=== PATIENT | male | born 1950 | race Caucasian/White ===

== ENCOUNTER 2020-12-05 15:05 | Inpatient (IN) | payer MEDICARE ==
[2020-12-05 15:53] LABS: #Eosinphils 0.5 thou/uL (0.0-0.7); #Lymphocytes 1.3 thou/uL (1.20-3.40); #Monocytes 1.2 thou/uL (0.11-0.59); #Neutrophils 5.8 thou/uL (1.40-6.50); %Basophils 0.2 % (0.0-1.0); %Eosinophils 5.9 % (0.0-10.0); %Lymphocytes 14.4 % (21.0-51.0); %Monocytes 13.4 % (0.0-10.0); Hemoglobin 11.6 g/dL (14.0-18.0); Mean Corpuscular Hemoglobin 32.2 pg (27.0-31.0); Mean Corpuscular Volume 94.7 fL (78.0-98.0); Mean Platelet Volume 7.3 fL (7.4-10.4); Platelet Count 347 thou/uL (130-400); RBC Distribution Width 11.7 % (11.5-14.5); White Blood Cell (WBC) Count 8.8 thou/uL (4.8-10.8)
[2020-12-05 16:16] LABS: ALT (SGPT) 23 U/L (8-55); AST (SGOT) 20 U/L (5-34); Albumin 3.5 g/dL (3.4-4.8); Alkaline Phosphatase 74 U/L (40-110); Anion Gap 15 mmol/L (10-20); BUN (Urea Nitrogen) 56 mg/dL (8.4-25.7); Bilirubin, Total 0.4 mg/dL (0.2-1.2); Calc. Creatinine Clearance 0 mL/min (70-130); Carbon Dioxide 22 mmol/L (23-31); Chloride 103 mmol/L (98-107); Globulin 2.9 g/dL (2.4-3.5); Glucose 120 mg/dL (80-115); Lipase 39 U/L (8-78); Potassium 3.3 mmol/L (3.5-5.1); Protein, Total 6.4 g/dL (5.8-8.1); Sodium 137 mmol/L (136-145)
[2020-12-05 18:31] LABS: INR-International Normal Ratio 1.1; PTT 29.3 sec (22.9-36.1); Prothrombin Time 13.9 sec (12.0-14.7)
[2020-12-05 18:41] LABS: CK (CPK) 38 U/L (30-200); Magnesium 2.6 mg/dL (1.6-2.6)
[2020-12-05] MEDS ORDERED: Midazolam HCl 2 mg/2 ml Vial ONE (20:30)
[2020-12-05] MEDS ORDERED: Aspirin 300 MG Suppository ONE (20:30)
[2020-12-06] MEDS: Sodium Chloride 0.9% 1,000 ML IV SCH ×2 (01:40→05:32)
[2020-12-06] MEDS ORDERED: Ondansetron PF 4 MG/2 ML Vial IVP PRN (04:29)
[2020-12-06] MEDS ORDERED: Potassium Chloride 10 MEQ in Premix Bag 1 BAG IVPB SCH ×2 (05:00→06:00)
[2020-12-06] MEDS: Azithromycin 500 MG in Sodium Chloride 0.9% 250 ML 250 ML IVPB SCH (05:03)
[2020-12-06 05:21] LABS: Hemoglobin 11.6 g/dL (14.0-18.0); Mean Corpuscular HGB CONC 33.3 g/dL (32.0-36.0); Mean Corpuscular Hemoglobin 31.6 pg (27.0-31.0); Mean Corpuscular Volume 94.8 fL (78.0-98.0); Mean Platelet Volume 7.2 fL (7.4-10.4); Platelet Count 356 thou/uL (130-400); RBC Distribution Width 11.6 % (11.5-14.5); Red Blood Cell (RBC) Count 3.69 mill/uL (4.70-6.10); White Blood Cell (WBC) Count 7.5 thou/uL (4.8-10.8)
[2020-12-06 05:35] LABS: Anion Gap 18 mmol/L (10-20); BUN (Urea Nitrogen) 41 mg/dL (8.4-25.7); Calc. Creatinine Clearance 55 mL/min (70-130); Carbon Dioxide 22 mmol/L (23-31); Chloride 111 mmol/L (98-107); Glucose 104 mg/dL (80-115); Potassium 3.4 mmol/L (3.5-5.1); Sodium 148 mmol/L (136-145)
[2020-12-06] MEDS ORDERED: cefTRIAXone\\ROCEPHIN 1 GM in Sodium Chloride 0.9% 100 ML IVPB SCH (06:00)
[2020-12-06] MEDS: cefTRIAXone\\ROCEPHIN 1 GM in Sodium Chloride 0.9% 100 ML IVPB SCH (06:34)
[2020-12-06 06:39] LABS: Band 19 % (5-11); Eosinophils 4 % (0-10); Lymphocytes 10 % (21-51); MDiff Complete? YES; Metamyelocyte 1 % (0-0); Monocytes 15 % (0-10); Neutrophil 48 % (42-75); Platelet Morphology Comment Appears Adequate; RBC Morphology Normal; Reactive Lymphocytes 3 % (0-10)
[2020-12-06 07:25] LABS: Bilirubin Negative (Negative); Blood, Urine Negative (Negative); Clarity Clear (Clear); Glucose, Urine (Dipstick) Normal (Negative); Ketone, Urine 10 mg/dL (Negative); Leukocyte Negative Leu/uL (Negative); Nitrite Negative (Negative); Protein, Urine (Dipstick) Negative (Neg-Trace); Urobilinogen Normal mg/dL (Less than 2)
[2020-12-06] MEDS ORDERED: Potassium Chloride 20 MEQ TAB PO SCH (08:00)
[2020-12-06] MEDS ORDERED: chlorproMAZINE HCl 25 MG in Sodium Chloride 0.9% 50 ML IVPB SCH (13:00)
[2020-12-06] MEDS ORDERED: Potassium Chloride 40 MEQ in Sodium Chloride 0.9% 250 ML 250 ML IVPB SCH ×2 (14:00→19:45)
[2020-12-06 17:17] LABS: SARS-CoV-2 PCR by NAA Not Detected (NotDetected)
[2020-12-06 23:07] LABS: Legionella Urinary Ag Negative (Negative)
[2020-12-07] MEDS: Azithromycin 500 MG in Sodium Chloride 0.9% 250 ML 250 ML IVPB SCH ×2 (04:15→09:06)
[2020-12-07] MEDS: cefTRIAXone\\ROCEPHIN 1 GM in Sodium Chloride 0.9% 100 ML IVPB SCH ×2 (06:15→09:06)
[2020-12-07] MEDS ORDERED: Sodium Chloride 0.9% 1,000 ML IV SCH (07:15)
[2020-12-07 09:10] LABS: Cardiac Risk 3.2 (Less than 4.5)
[2020-12-07] MEDS ORDERED: Sodium Chloride 0.9% 500 ML IV SCH (09:45)
[2020-12-07 11:31] LABS: Anion Gap 22 mmol/L (10-20); BUN (Urea Nitrogen) 38 mg/dL (8.4-25.7); Calc. Creatinine Clearance 37 mL/min (70-130); Calcium 9.2 mg/dL (7.8-10.44); Carbon Dioxide 22 mmol/L (23-31); Chloride 119 mmol/L (98-107); Glucose 110 mg/dL (80-115); Potassium 3.2 mmol/L (3.5-5.1); Sodium 160 mmol/L (136-145)
[2020-12-07] MEDS ORDERED: Potassium Chloride 20 MEQ TAB PO SCH (15:15)
[2020-12-07 15:27] LABS: Hemoglobin 14.7 g/dL (14.0-18.0); Mean Corpuscular HGB CONC 32.3 g/dL (32.0-36.0); Mean Corpuscular Hemoglobin 30.7 pg (27.0-31.0); Mean Corpuscular Volume 95.1 fL (78.0-98.0); Mean Platelet Volume 7.1 fL (7.4-10.4); Platelet Count 600 thou/uL (130-400); RBC Distribution Width 12.1 % (11.5-14.5); White Blood Cell (WBC) Count 28.5 thou/uL (4.8-10.8)
[2020-12-07] MEDS ORDERED: Pantoprazole 40 MG VIAL IVP SCH (15:30)
[2020-12-07] MEDS ORDERED: Enoxaparin Sodium 40 MG/0.4 ML SYRINGE SC SCH (15:30)
[2020-12-07] MEDS ORDERED: MD-Gastroview 120 ML BOT ONE (15:32)
[2020-12-07 15:43] LABS: Anion Gap 28 mmol/L (10-20); BUN (Urea Nitrogen) 46 mg/dL (8.4-25.7); Calc. Creatinine Clearance 28 mL/min (70-130); Calcium 10.1 mg/dL (7.8-10.44); Carbon Dioxide 20 mmol/L (23-31); Chloride 126 mmol/L (98-107); Glucose 153 mg/dL (80-115); Potassium 3.3 mmol/L (3.5-5.1); Sodium 171 mmol/L (136-145)
[2020-12-07 16:06] LABS: Hemoglobin 13.1 g/dL (14.0-18.0); Mean Corpuscular HGB CONC 32.8 g/dL (32.0-36.0); Mean Corpuscular Hemoglobin 31.1 pg (27.0-31.0); Mean Corpuscular Volume 94.9 fL (78.0-98.0); Mean Platelet Volume 7.1 fL (7.4-10.4); Platelet Count 526 thou/uL (130-400); Red Blood Cell (RBC) Count 4.22 mill/uL (4.70-6.10); White Blood Cell (WBC) Count 24.7 thou/uL (4.8-10.8)
[2020-12-07 16:06] LABS: Band 25 % (5-11); Eosinophils 3 % (0-10); Lymphocytes 8 % (21-51); MDiff Complete? YES; Monocytes 12 % (0-10); Myelocyte 4 % (0-0); Neutrophil 48 % (42-75); Nucleated RBC 1 % (0); Platelet Morphology Comment Appears Increased; RBC Morphology Normal
[2020-12-07 16:28] LABS: Band 21 % (5-11); Lymphocytes 15 % (21-51); MDiff Complete? YES; Metamyelocyte 1 % (0-0); Monocytes 7 % (0-10); Myelocyte 2 % (0-0); Neutrophil 53 % (42-75); Nucleated RBC 1 % (0); Platelet Morphology Comment Appears Increased; Polychromasia SLIGHT = 2-3 cells (100X) (0-2/hpf); Promyelocytes 1 % (0-0)
[2020-12-07 16:49] LABS: Anion Gap 23 mmol/L (10-20); BUN (Urea Nitrogen) 45 mg/dL (8.4-25.7); Calc. Creatinine Clearance 31 mL/min (70-130); Carbon Dioxide 23 mmol/L (23-31); Chloride 126 mmol/L (98-107); Glucose 138 mg/dL (80-115); Potassium 2.9 mmol/L (3.5-5.1); Sodium 169 mmol/L (136-145)
[2020-12-07] MEDS: Dextrose 5 %-0.45 % NaCl 1,000 ML IV SCH ×2 (17:11→23:22)
[2020-12-07 17:53] LABS: Actual Bicarbonate (HCO3a) 20.2 mEq/L (22-28); Base Excess (BEa) 2.3 mEq/L (-2.0 to +3.0); Calcium, Ionized (arterial) 1.18 mmol/L (1.12-1.30); Carboxyhemoglobin (COHb) 0.2 gm% (0.0-3.0); Hemoglobin (Hb) 13.2 g/dL (14.0-18.0); Potassium - ABG Lab 2.68 mmol/L (3.70-5.30)
[2020-12-07 18:01] LABS: ALV-art Gradient 68.355 mmHg (0-20); CO2 Tension 17.5 mmHg (35.0-45.0); O2 Tension (PaO2), arterial 59.5 mmHg (> 80.0); Puncture Site LBA; pH, Arterial 7.68 (7.35-7.45)
[2020-12-07] MEDS: Potassium Chloride 20 MEQ in Premix Bag 1 BAG IVPB SCH ×2 (18:19→19:18)
[2020-12-07] MEDS: Potassium Chloride 20 MEQ TAB PO SCH ×3 (19:18→21:35)
[2020-12-07 20:15] LABS: Anion Gap 20 mmol/L (10-20); BUN (Urea Nitrogen) 48 mg/dL (8.4-25.7); Calc. Creatinine Clearance 29 mL/min (70-130); Carbon Dioxide 24 mmol/L (23-31); Chloride 130 mmol/L (98-107); Glucose 167 mg/dL (80-115); Potassium 3.2 mmol/L (3.5-5.1); Sodium 171 mmol/L (136-145)
[2020-12-08 00:20] LABS: Anion Gap 16 mmol/L (10-20); BUN (Urea Nitrogen) 47 mg/dL (8.4-25.7); Calc. Creatinine Clearance 31 mL/min (70-130); Calcium 8.9 mg/dL (7.8-10.44); Carbon Dioxide 27 mmol/L (23-31); Chloride 128 mmol/L (98-107); Glucose 179 mg/dL (80-115); Sodium 168 mmol/L (136-145)
[2020-12-08 00:45] LABS: Actual Bicarbonate (HCO3a) 23.5 mEq/L (22-28); Calcium, Ionized (arterial) 1.17 mmol/L (1.12-1.30); Hemoglobin (Hb) 13.9 g/dL (14.0-18.0); Potassium - ABG Lab 2.53 mmol/L (3.70-5.30)
[2020-12-08 00:46] LABS: pH, Arterial 7.63 (7.35-7.45)
[2020-12-08 00:47] LABS: O2 Tension (PaO2), arterial 52.1 mmHg (> 80.0); Puncture Site RBA
[2020-12-08] MEDS: Azithromycin 500 MG in Sodium Chloride 0.9% 250 ML 250 ML IVPB SCH (04:43)
[2020-12-08 05:11] LABS: Anion Gap 12 mmol/L (10-20); BUN (Urea Nitrogen) 46 mg/dL (8.4-25.7); Calc. Creatinine Clearance 30 mL/min (70-130); Calcium 8.9 mg/dL (7.8-10.44); Carbon Dioxide 30 mmol/L (23-31); Chloride 126 mmol/L (98-107); Glucose 177 mg/dL (80-115); Sodium 165 mmol/L (136-145)
[2020-12-08] MEDS: cefTRIAXone\\ROCEPHIN 1 GM in Sodium Chloride 0.9% 100 ML IVPB SCH (06:10)
[2020-12-08] MEDS ORDERED: Dextrose 5 %-0.45 % NaCl 1,000 ML IV SCH (07:42)
[2020-12-08] MEDS ORDERED: Potassium Chloride 20 MEQ TAB PO SCH (08:00)
[2020-12-08 09:08] LABS: Anion Gap 16 mmol/L (10-20); BUN (Urea Nitrogen) 44 mg/dL (8.4-25.7); Calc. Creatinine Clearance 31 mL/min (70-130); Carbon Dioxide 29 mmol/L (23-31); Chloride 127 mmol/L (98-107); Glucose 141 mg/dL (80-115); Potassium 3.1 mmol/L (3.5-5.1); Sodium 169 mmol/L (136-145)
[2020-12-08] MEDS ORDERED: Dextrose 5% in Water 1,000 ML IV SCH (10:45)
[2020-12-08] MEDS: Potassium Chloride 20 MEQ in Premix Bag 1 BAG IVPB SCH ×2 (10:54→10:59)
[2020-12-08] MEDS: Pantoprazole 40 MG VIAL IVP SCH (10:57)
[2020-12-08] MEDS: Enoxaparin Sodium 40 MG/0.4 ML SYRINGE SC SCH (10:57)
[2020-12-08 11:44] LABS: Band 11 % (5-11); Eosinophils 6 % (0-10); Hemoglobin 13.6 g/dL (14.0-18.0); Lymphocytes 14 % (21-51); MDiff Complete? YES; Mean Corpuscular HGB CONC 32.2 g/dL (32.0-36.0); Mean Corpuscular Hemoglobin 30.5 pg (27.0-31.0); Mean Corpuscular Volume 94.9 fL (78.0-98.0); Metamyelocyte 1 % (0-0); Monocytes 6 % (0-10); Myelocyte 1 % (0-0); Neutrophil 60 % (42-75); Platelet Count 522 thou/uL (130-400); Platelet Morphology Comment Appears Increased; RBC Distribution Width 12.1 % (11.5-14.5); Red Blood Cell (RBC) Count 4.45 mill/uL (4.70-6.10); White Blood Cell (WBC) Count 33.7 thou/uL (4.8-10.8)
[2020-12-08 12:53] LABS: Albumin 3.4 g/dL (3.4-4.8)
[2020-12-08 12:54] LABS: Potassium 4.2 mmol/L (3.5-5.1)
[2020-12-08 12:57] LABS: Anion Gap 28 mmol/L (10-20); Carbon Dioxide 18 mmol/L (23-31)
[2020-12-08 12:58] LABS: Chloride 129 mmol/L (98-107); Glucose 238 mg/dL (80-115); Sodium 171 mmol/L (136-145)
[2020-12-08 12:59] LABS: BUN (Urea Nitrogen) 44 mg/dL (8.4-25.7); BUN/Creatinine Ratio 18.88; Calc. Creatinine Clearance 30 mL/min (70-130)
[2020-12-08 13:00] LABS: CK (CPK) 176 U/L (30-200)
[2020-12-08 13:23] LABS: Phosphorus 1.9 mg/dL (2.3-4.7)
[2020-12-08] MEDS ORDERED: Potassium Phosphate 30 MMOL in Sodium Chloride 0.9% 500 ML IVPB SCH (14:00)
[2020-12-08 14:28] LABS: Magnesium 2.9 mg/dL (1.6-2.6)
[2020-12-08] MEDS: Erythromycin 250 MG in Sodium Chloride 0.9% 250 ML 250 ML IVPB SCH ×2 (15:03→22:38)
[2020-12-08 16:50] LABS: Anion Gap 14 mmol/L (10-20); BUN (Urea Nitrogen) 35 mg/dL (8.4-25.7); BUN/Creatinine Ratio 18.62; Calc. Creatinine Clearance 37 mL/min (70-130); Calcium 8.3 mg/dL (7.8-10.44); Carbon Dioxide 25 mmol/L (23-31); Chloride 128 mmol/L (98-107); Glucose 148 mg/dL (80-115); Phosphorus 2.8 mg/dL (2.3-4.7); Sodium 164 mmol/L (136-145)
[2020-12-08] MEDS ORDERED: Lorazepam 2 MG/ML VIAL SLOW IVP PRN (19:21)
[2020-12-08 19:49] LABS: Bilirubin Negative (Negative); Blood, Urine 1+ (Negative); Clarity Clear (Clear); Glucose, Urine (Dipstick) Normal (Negative); Ketone, Urine Negative (Negative); Leukocyte 25 Leu/uL (Negative); Nitrite Negative (Negative); Protein, Urine (Dipstick) Negative (Neg-Trace); RBC/HPF 0-3 HPF (0-3); Specific Gravity, Urine 1.008 (1.002-1.036); Urobilinogen Normal mg/dL (Less than 2); WBC/HPF 0-3 HPF (0-3)
[2020-12-08 19:55] LABS: Bacteria/HPF Rare-Few HPF (None Seen); Squamous Epithelial 0-3 HPF (0-3)
[2020-12-08 19:56] LABS: Urine Culture Reflex Yes Yes
[2020-12-08 20:02] LABS: Creatinine, Urine 34.33 mg/dL (63-166); Protein, Urine Random Quant 13 mg/dL (1-14); Sodium, Urine Less than 20 mmol/L (Not Available); Urea Nitrogen, Random Urine 379 mg/dl
[2020-12-08 20:32] LABS: Anion Gap 17 mmol/L (10-20); BUN (Urea Nitrogen) 30 mg/dL (8.4-25.7); BUN/Creatinine Ratio 17.14; Calc. Creatinine Clearance 40 mL/min (70-130); Calcium 8.2 mg/dL (7.8-10.44); Carbon Dioxide 24 mmol/L (23-31); Chloride 128 mmol/L (98-107); Glucose 130 mg/dL (80-115); Phosphorus 3.1 mg/dL (2.3-4.7); Potassium 3.3 mmol/L (3.5-5.1); Sodium 166 mmol/L (136-145)
[2020-12-08] MEDS: Dextrose 5 %-0.45 % NaCl 1,000 ML IV SCH (21:45)
[2020-12-08] MEDS: Dextrose 5% in Water 1,000 ML IV SCH (22:24)
[2020-12-08] MEDS: carBAMazepine 200 MG TAB PO SCH (22:37)
[2020-12-09] MEDS: Dextrose 5% in Water 1,000 ML IV SCH ×4 (03:42→21:00)
[2020-12-09 05:23] LABS: #Eosinphils 0.6 thou/uL (0.0-0.7); #Lymphocytes 2.7 thou/uL (1.20-3.40); #Monocytes 0.6 thou/uL (0.11-0.59); #Neutrophils 14.3 thou/uL (1.40-6.50); %Basophils 0.2 % (0.0-1.0); %Eosinophils 3.1 % (0.0-10.0); %Lymphocytes 14.8 % (21.0-51.0); %Monocytes 3.1 % (0.0-10.0); %Neutrophils 78.9 % (42.0-75.0); Hemoglobin 8.1 g/dL (14.0-18.0); Mean Corpuscular HGB CONC 30.9 g/dL (32.0-36.0); Mean Corpuscular Hemoglobin 31.7 pg (27.0-31.0); Mean Platelet Volume 7.2 fL (7.4-10.4); Platelet Count 312 thou/uL (130-400); RBC Distribution Width 12.5 % (11.5-14.5); Red Blood Cell (RBC) Count 2.56 mill/uL (4.70-6.10); White Blood Cell (WBC) Count 18.2 thou/uL (4.8-10.8)
[2020-12-09] MEDS: Erythromycin 250 MG in Sodium Chloride 0.9% 250 ML 250 ML IVPB SCH ×3 (05:38→21:04)
[2020-12-09] MEDS: cefTRIAXone\\ROCEPHIN 1 GM in Sodium Chloride 0.9% 100 ML IVPB SCH ×2 (06:40→09:27)
[2020-12-09 06:41] LABS: Albumin 2.6 g/dL (3.4-4.8)
[2020-12-09 06:42] LABS: Sodium 159 mmol/L (136-145)
[2020-12-09 06:43] LABS: Calcium 7.3 mg/dL (7.8-10.44); Glucose 120 mg/dL (80-115)
[2020-12-09 06:44] LABS: Anion Gap 12 mmol/L (10-20); Carbon Dioxide 24 mmol/L (23-31)
[2020-12-09 06:46] LABS: Calc. Creatinine Clearance 48 mL/min (70-130)
[2020-12-09 06:47] LABS: BUN (Urea Nitrogen) 21 mg/dL (8.4-25.7); BUN/Creatinine Ratio 14.29
[2020-12-09 06:49] LABS: CK (CPK) 270 U/L (30-200)
[2020-12-09 06:51] LABS: Chloride 126 mmol/L (98-107); Phosphorus 4.3 mg/dL (2.3-4.7)
[2020-12-09 08:18] LABS: Anion Gap 12 mmol/L (10-20); BUN (Urea Nitrogen) 20 mg/dL (8.4-25.7); Calc. Creatinine Clearance 49 mL/min (70-130); Calcium 7.3 mg/dL (7.8-10.44); Carbon Dioxide 23 mmol/L (23-31); Glucose 119 mg/dL (80-115); Sodium 158 mmol/L (136-145)
[2020-12-09 08:19] LABS: Magnesium 2.3 mg/dL (1.6-2.6)
[2020-12-09 08:23] LABS: Chloride 126 mmol/L (98-107)
[2020-12-09] MEDS: Enoxaparin Sodium 40 MG/0.4 ML SYRINGE SC SCH (09:26)
[2020-12-09] MEDS: risperiDONE 1 MG TAB PO SCH (09:26)
[2020-12-09] MEDS: carBAMazepine 200 MG TAB PO SCH ×2 (09:26→21:00)
[2020-12-09] MEDS: Pantoprazole 40 MG VIAL IVP SCH (09:40)
[2020-12-09] MEDS ORDERED: Heparin 1,000 UNITS/ML VIAL ONE (15:04)
[2020-12-09 15:46] LABS: Anion Gap 14 mmol/L (10-20); BUN (Urea Nitrogen) 14 mg/dL (8.4-25.7); Calc. Creatinine Clearance 56 mL/min (70-130); Calcium 7.3 mg/dL (7.8-10.44); Carbon Dioxide 21 mmol/L (23-31); Glucose 143 mg/dL (80-115); Potassium 3.3 mmol/L (3.5-5.1); Sodium 158 mmol/L (136-145)
[2020-12-09 15:55] LABS: Chloride 126 mmol/L (98-107)
[2020-12-09 20:46] LABS: Anion Gap 12 mmol/L (10-20); BUN (Urea Nitrogen) 12 mg/dL (8.4-25.7); Calc. Creatinine Clearance 61 mL/min (70-130); Calcium 7.5 mg/dL (7.8-10.44); Carbon Dioxide 26 mmol/L (23-31); Chloride 124 mmol/L (98-107); Glucose 138 mg/dL (80-115); Potassium 3.4 mmol/L (3.5-5.1); Sodium 159 mmol/L (136-145)
[2020-12-09 23:36] LABS: L.pneumophilia Abs <0.91 OD ratio (0.00-0.90)
[2020-12-10] MEDS: Dextrose 5% in Water 1,000 ML IV SCH ×6 (02:20→21:08)
[2020-12-10] MEDS: Erythromycin 250 MG in Sodium Chloride 0.9% 250 ML 250 ML IVPB SCH ×3 (05:30→21:11)
[2020-12-10 05:33] LABS: #Eosinphils 0.5 thou/uL (0.0-0.7); #Lymphocytes 2.9 thou/uL (1.20-3.40); #Monocytes 0.5 thou/uL (0.11-0.59); #Neutrophils 13.8 thou/uL (1.40-6.50); %Lymphocytes 16.4 % (21.0-51.0); %Monocytes 2.7 % (0.0-10.0); Hemoglobin 10.6 g/dL (14.0-18.0); Mean Corpuscular Hemoglobin 32.1 pg (27.0-31.0); Mean Platelet Volume 7.2 fL (7.4-10.4); Platelet Count 370 thou/uL (130-400); RBC Distribution Width 12.2 % (11.5-14.5); Red Blood Cell (RBC) Count 3.32 mill/uL (4.70-6.10); White Blood Cell (WBC) Count 17.7 thou/uL (4.8-10.8)
[2020-12-10 06:05] LABS: Anion Gap 9 mmol/L (10-20); BUN (Urea Nitrogen) 11 mg/dL (8.4-25.7); Calc. Creatinine Clearance 61 mL/min (70-130); Calcium 7.8 mg/dL (7.8-10.44); Carbon Dioxide 24 mmol/L (23-31); Chloride 128 mmol/L (98-107); Glucose 125 mg/dL (80-115); Magnesium 2.5 mg/dL (1.6-2.6); Phosphorus 3.4 mg/dL (2.3-4.7); Sodium 157 mmol/L (136-145)
[2020-12-10] MEDS: cefTRIAXone\\ROCEPHIN 1 GM in Sodium Chloride 0.9% 100 ML IVPB SCH (08:49)
[2020-12-10] MEDS: carBAMazepine 200 MG TAB PO SCH ×2 (08:50→21:09)
[2020-12-10] MEDS: Enoxaparin Sodium 40 MG/0.4 ML SYRINGE SC SCH (08:50)
[2020-12-10] MEDS: Pantoprazole 40 MG VIAL IVP SCH (08:50)
[2020-12-10] MEDS: risperiDONE 1 MG TAB PO SCH (08:50)
[2020-12-10] MEDS ORDERED: Enoxaparin Sodium 30 MG/0.3 ML SYRINGE SC SCH (09:00)
[2020-12-10 14:13] LABS: Anion Gap 14 mmol/L (10-20); BUN (Urea Nitrogen) 9 mg/dL (8.4-25.7); Calc. Creatinine Clearance 65 mL/min (70-130); Calcium 7.9 mg/dL (7.8-10.44); Carbon Dioxide 18 mmol/L (23-31); Glucose 120 mg/dL (80-115); Potassium 4.2 mmol/L (3.5-5.1); Sodium 155 mmol/L (136-145)
[2020-12-10 14:30] LABS: Chloride 127 mmol/L (98-107)
[2020-12-10 19:23] LABS: Anion Gap 8 mmol/L (10-20); BUN (Urea Nitrogen) 9 mg/dL (8.4-25.7); Calc. Creatinine Clearance 61 mL/min (70-130); Calcium 8.2 mg/dL (7.8-10.44); Carbon Dioxide 22 mmol/L (23-31); Glucose 130 mg/dL (80-115); Potassium 3.9 mmol/L (3.5-5.1); Sodium 152 mmol/L (136-145)
[2020-12-10 19:27] LABS: Chloride 126 mmol/L (98-107)
[2020-12-11] MEDS: Dextrose 5% in Water 1,000 ML IV SCH ×6 (01:11→22:56)
[2020-12-11 05:50] LABS: Anion Gap 10 mmol/L (10-20); BUN (Urea Nitrogen) 9 mg/dL (8.4-25.7); Calc. Creatinine Clearance 62 mL/min (70-130); Calcium 7.8 mg/dL (7.8-10.44); Carbon Dioxide 24 mmol/L (23-31); Glucose 107 mg/dL (80-115); Potassium 4.2 mmol/L (3.5-5.1); Sodium 156 mmol/L (136-145)
[2020-12-11 06:02] LABS: Chloride 126 mmol/L (98-107)
[2020-12-11] MEDS: Erythromycin 250 MG in Sodium Chloride 0.9% 250 ML 250 ML IVPB SCH ×3 (06:13→21:06)
[2020-12-11] MEDS: risperiDONE 1 MG TAB PO SCH (08:48)
[2020-12-11] MEDS: carBAMazepine 200 MG TAB PO SCH ×2 (08:49→21:06)
[2020-12-11] MEDS: Enoxaparin Sodium 40 MG/0.4 ML SYRINGE SC SCH (08:49)
[2020-12-11] MEDS: Pantoprazole 40 MG VIAL IVP SCH (08:50)
[2020-12-11 12:59] LABS: Anion Gap 8 mmol/L (10-20); BUN (Urea Nitrogen) 8 mg/dL (8.4-25.7); Calc. Creatinine Clearance 62 mL/min (70-130); Calcium 7.9 mg/dL (7.8-10.44); Carbon Dioxide 23 mmol/L (23-31); Chloride 123 mmol/L (98-107); Glucose 115 mg/dL (80-115); Potassium 3.9 mmol/L (3.5-5.1); Sodium 150 mmol/L (136-145)
[2020-12-11] MEDS: Potassium Bicarbonate/Cit Ac 20 MEQ TAB PO SCH (17:54)
[2020-12-11 19:07] LABS: Anion Gap 11 mmol/L (10-20); BUN (Urea Nitrogen) 8 mg/dL (8.4-25.7); Calc. Creatinine Clearance 62 mL/min (70-130); Calcium 7.9 mg/dL (7.8-10.44); Carbon Dioxide 21 mmol/L (23-31); Chloride 122 mmol/L (98-107); Glucose 108 mg/dL (80-115); Potassium 3.9 mmol/L (3.5-5.1); Sodium 150 mmol/L (136-145)
[2020-12-12] MEDS: Dextrose 5% in Water 1,000 ML IV SCH ×5 (03:13→17:34)
[2020-12-12 05:13] LABS: Anion Gap 8 mmol/L (10-20); BUN (Urea Nitrogen) 10 mg/dL (8.4-25.7); Calc. Creatinine Clearance 62 mL/min (70-130); Calcium 7.9 mg/dL (7.8-10.44); Carbon Dioxide 23 mmol/L (23-31); Chloride 121 mmol/L (98-107); Glucose 116 mg/dL (80-115); Potassium 4.2 mmol/L (3.5-5.1); Sodium 148 mmol/L (136-145)
[2020-12-12] MEDS: Erythromycin 250 MG in Sodium Chloride 0.9% 250 ML 250 ML IVPB SCH ×3 (07:38→21:16)
[2020-12-12] MEDS: Potassium Bicarbonate/Cit Ac 20 MEQ TAB PO SCH ×2 (09:45→17:34)
[2020-12-12] MEDS: carBAMazepine 200 MG TAB PO SCH ×2 (09:45→21:16)
[2020-12-12] MEDS: Enoxaparin Sodium 40 MG/0.4 ML SYRINGE SC SCH (09:45)
[2020-12-12] MEDS: risperiDONE 1 MG TAB PO SCH (09:45)
[2020-12-12 15:55] LABS: Anion Gap 8 mmol/L (10-20); BUN (Urea Nitrogen) 9 mg/dL (8.4-25.7); Calc. Creatinine Clearance 61 mL/min (70-130); Calcium 8.4 mg/dL (7.8-10.44); Carbon Dioxide 26 mmol/L (23-31); Chloride 117 mmol/L (98-107); Glucose 93 mg/dL (80-115); Sodium 147 mmol/L (136-145)
[2020-12-13] MEDS: Dextrose 5% in Water 1,000 ML IV SCH ×8 (00:54→20:30)
[2020-12-13 05:13] LABS: Anion Gap 9 mmol/L (10-20); BUN (Urea Nitrogen) 10 mg/dL (8.4-25.7); Calc. Creatinine Clearance 50 mL/min (70-130); Calcium 8.4 mg/dL (7.8-10.44); Carbon Dioxide 25 mmol/L (23-31); Chloride 118 mmol/L (98-107); Glucose 122 mg/dL (80-115); Potassium 3.8 mmol/L (3.5-5.1); Sodium 148 mmol/L (136-145)
[2020-12-13] MEDS: Erythromycin 250 MG in Sodium Chloride 0.9% 250 ML 250 ML IVPB SCH ×3 (06:50→22:35)
[2020-12-13] MEDS: Enoxaparin Sodium 40 MG/0.4 ML SYRINGE SC SCH (09:34)
[2020-12-13] MEDS: carBAMazepine 200 MG TAB PO SCH ×2 (09:34→20:29)
[2020-12-13] MEDS: risperiDONE 1 MG TAB PO SCH (09:34)
[2020-12-13] MEDS: Potassium Bicarbonate/Cit Ac 20 MEQ TAB PO SCH ×2 (09:34→17:04)
[2020-12-13 17:42] LABS: Anion Gap 9 mmol/L (10-20); BUN (Urea Nitrogen) 11 mg/dL (8.4-25.7); Calc. Creatinine Clearance 55 mL/min (70-130); Calcium 8.4 mg/dL (7.8-10.44); Carbon Dioxide 25 mmol/L (23-31); Chloride 114 mmol/L (98-107); Glucose 106 mg/dL (80-115); Potassium 3.7 mmol/L (3.5-5.1); Sodium 144 mmol/L (136-145)
[2020-12-14] MEDS: Dextrose 5% in Water 1,000 ML IV SCH ×6 (00:55→20:01)
[2020-12-14 04:35] LABS: #Eosinphils 0.4 thou/uL (0.0-0.7); #Lymphocytes 1.9 thou/uL (1.20-3.40); #Monocytes 0.8 thou/uL (0.11-0.59); #Neutrophils 14.3 thou/uL (1.40-6.50); %Basophils 0.2 % (0.0-1.0); %Lymphocytes 10.7 % (21.0-51.0); %Monocytes 4.7 % (0.0-10.0); %Neutrophils 82.4 % (42.0-75.0); Hemoglobin 10.5 g/dL (14.0-18.0); Mean Corpuscular HGB CONC 31.9 g/dL (32.0-36.0); Mean Corpuscular Hemoglobin 31.2 pg (27.0-31.0); Mean Corpuscular Volume 97.7 fL (78.0-98.0); Mean Platelet Volume 7.3 fL (7.4-10.4); Platelet Count 314 thou/uL (130-400); RBC Distribution Width 12.5 % (11.5-14.5); Red Blood Cell (RBC) Count 3.37 mill/uL (4.70-6.10); White Blood Cell (WBC) Count 17.4 thou/uL (4.8-10.8)
[2020-12-14 04:57] LABS: ALT (SGPT) 59 U/L (8-55); AST (SGOT) 45 U/L (5-34); Albumin 2.7 g/dL (3.4-4.8); Alkaline Phosphatase 80 U/L (40-110); Anion Gap 11 mmol/L (10-20); BUN (Urea Nitrogen) 8 mg/dL (8.4-25.7); Bilirubin, Total 0.2 mg/dL (0.2-1.2); Calc. Creatinine Clearance 60 mL/min (70-130); Calcium 8.1 mg/dL (7.8-10.44); Carbon Dioxide 22 mmol/L (23-31); Chloride 114 mmol/L (98-107); Globulin 2.8 g/dL (2.4-3.5); Glucose 128 mg/dL (80-115); Potassium 3.7 mmol/L (3.5-5.1); Protein, Total 5.5 g/dL (5.8-8.1); Sodium 143 mmol/L (136-145)
[2020-12-14] MEDS: Erythromycin 250 MG in Sodium Chloride 0.9% 250 ML 250 ML IVPB SCH ×3 (06:04→22:00)
[2020-12-14] MEDS: carBAMazepine 200 MG TAB PO SCH ×2 (09:53→20:02)
[2020-12-14] MEDS: risperiDONE 1 MG TAB PO SCH (09:54)
[2020-12-14] MEDS: Potassium Bicarbonate/Cit Ac 20 MEQ TAB PO SCH ×2 (09:54→17:48)
[2020-12-14] MEDS: Enoxaparin Sodium 40 MG/0.4 ML SYRINGE SC SCH (10:24)
[2020-12-14 15:08] LABS: Anion Gap 10 mmol/L (10-20); BUN (Urea Nitrogen) 7 mg/dL (8.4-25.7); BUN/Creatinine Ratio 6.14; Calc. Creatinine Clearance 58 mL/min (70-130); Calcium 8.8 mg/dL (7.8-10.44); Carbon Dioxide 27 mmol/L (23-31); Chloride 111 mmol/L (98-107); Glucose 102 mg/dL (80-115); Phosphorus 3.6 mg/dL (2.3-4.7); Potassium 3.8 mmol/L (3.5-5.1); Sodium 144 mmol/L (136-145)
[2020-12-14 17:42] LABS: SARS-CoV-2 PCR by NAA Not Detected (NotDetected)
[2020-12-15] MEDS: Dextrose 5% in Water 1,000 ML IV SCH ×3 (01:02→14:43)
[2020-12-15] MEDS: Erythromycin 250 MG in Sodium Chloride 0.9% 250 ML 250 ML IVPB SCH ×3 (06:11→22:09)
[2020-12-15] MEDS ORDERED: Dextrose 5% in Water 1,000 ML IV SCH (08:52)
[2020-12-15 08:56] LABS: Albumin 2.9 g/dL (3.4-4.8); Anion Gap 10 mmol/L (10-20); BUN (Urea Nitrogen) 9 mg/dL (8.4-25.7); BUN/Creatinine Ratio 8.41; Calc. Creatinine Clearance 62 mL/min (70-130); Calcium 8.7 mg/dL (7.8-10.44); Carbon Dioxide 23 mmol/L (23-31); Chloride 113 mmol/L (98-107); Glucose 125 mg/dL (80-115); Phosphorus 3.6 mg/dL (2.3-4.7); Potassium 3.9 mmol/L (3.5-5.1); Sodium 142 mmol/L (136-145)
[2020-12-15] MEDS: Enoxaparin Sodium 40 MG/0.4 ML SYRINGE SC SCH (09:53)
[2020-12-15] MEDS: Potassium Bicarbonate/Cit Ac 20 MEQ TAB PO SCH ×2 (09:54→18:09)
[2020-12-15] MEDS: risperiDONE 1 MG TAB PO SCH (09:55)
[2020-12-15] MEDS: carBAMazepine 200 MG TAB PO SCH ×2 (09:55→20:07)
[2020-12-16 05:10] LABS: Anion Gap 8 mmol/L (10-20); BUN (Urea Nitrogen) 16 mg/dL (8.4-25.7); BUN/Creatinine Ratio 13.22; Calc. Creatinine Clearance 55 mL/min (70-130); Calcium 9.1 mg/dL (7.8-10.44); Carbon Dioxide 26 mmol/L (23-31); Chloride 111 mmol/L (98-107); Glucose 93 mg/dL (80-115); Phosphorus 3.1 mg/dL (2.3-4.7); Potassium 4.2 mmol/L (3.5-5.1); Sodium 141 mmol/L (136-145)
[2020-12-16] MEDS: Erythromycin 250 MG in Sodium Chloride 0.9% 250 ML 250 ML IVPB SCH ×2 (06:11→15:05)
[2020-12-16 09:12] VITALS: BMI 21.5
[2020-12-16] MEDS: Potassium Bicarbonate/Cit Ac 20 MEQ TAB PO SCH ×2 (10:13→17:24)
[2020-12-16] MEDS: risperiDONE 1 MG TAB PO SCH (10:13)
[2020-12-16] MEDS: carBAMazepine 200 MG TAB PO SCH (10:14)
[2020-12-16] MEDS: Enoxaparin Sodium 40 MG/0.4 ML SYRINGE SC SCH (10:15)
[2020-12-16 17:52] VITALS: BP 111/52; TEMP 98.3
== END 2020-12-16 17:50 | DRG 388 ==
LOC: ERS 15:05 → 2NO 21:05
PROVIDERS: ADMIT Student in an Organized Health Care Education/Training Program; ATTEND Internal Medicine
PROC: 0D9670Z Drainage of Stomach with Drainage Device, Via Natural or Artificial Opening (ICD-10-PCS; principal; 2020-12-05)
PROC: 02HV33Z Insertion of Infusion Device into Superior Vena Cava, Percutaneous Approach (ICD-10-PCS; 2020-12-09)
PROC: B548ZZA Ultrasonography of Superior Vena Cava, Guidance (ICD-10-PCS; 2020-12-09)
DX: K56.600 Partial intestinal obstruction, unspecified as to cause (principal); J69.0 Pneumonitis due to inhalation of food and vomit; G93.41 Metabolic encephalopathy; J96.01 Acute respiratory failure with hypoxia; F84.5 Asperger's syndrome; N17.9 Acute kidney failure, unspecified; E87.0 Hyperosmolality and hypernatremia; E87.2 Acidosis; Z68.1 Body mass index [BMI] 19.9 or less, adult; Z20.822 Contact with and (suspected) exposure to COVID-19; K56.7 Ileus, unspecified; G40.909 Epilepsy, unspecified, not intractable, without status epilepticus; F95.2 Tourette's disorder; E87.6 Hypokalemia; E86.0 Dehydration; R55 Syncope and collapse; R33.9 Retention of urine, unspecified; R13.10 Dysphagia, unspecified; E83.51 Hypocalcemia; E83.39 Other disorders of phosphorus metabolism; D72.829 Elevated white blood cell count, unspecified; R63.6 Underweight; Z79.899 Other long term (current) drug therapy
CPT/HCPCS: 36415; 36416; 36569; 36600; 70450; 70551; 71045; 74018; 74177; 74250; 76770; 80048; 80053; 80061; 80069; 81001; 81003; 82306; 82550; 82570; 82805; 83605; 83690; 83735; 84100; 84145; 84156; 84300; 84484; 84540; 85025; 85610; 85730; 86713; 86850; 86900; 86901; 87040; 87070; 87086; 87324; 87449; 87899; 93005; 93010; 93306; 93880; 96374; C1751; C9113; J0456; J0696; J1364; J1644; J1650; J2250; J2405; J3230; J3480; J3490; J7030; J7042; J7050; J7070; Q9963; U0003; U0005

== ENCOUNTER 2020-12-30 11:12 | Inpatient (IN) | payer MEDICARE ==
[2020-12-30 11:44] LABS: #Basophils 0.1 thou/uL (0.0-0.2); #Eosinphils 0.6 thou/uL (0.0-0.7); #Lymphocytes 2.2 thou/uL (1.20-3.40); #Monocytes 0.7 thou/uL (0.11-0.59); #Neutrophils 9.9 thou/uL (1.40-6.50); %Basophils 0.5 % (0.0-1.0); %Eosinophils 4.4 % (0.0-10.0); %Lymphocytes 16.2 % (21.0-51.0); %Monocytes 5.2 % (0.0-10.0); %Neutrophils 73.8 % (42.0-75.0); Mean Corpuscular HGB CONC 32.8 g/dL (32.0-36.0); Mean Corpuscular Hemoglobin 31.6 pg (27.0-31.0); Mean Corpuscular Volume 96.3 fL (78.0-98.0); Mean Platelet Volume 7.1 fL (7.4-10.4); Platelet Count 411 thou/uL (130-400); RBC Distribution Width 12.7 % (11.5-14.5); Red Blood Cell (RBC) Count 3.49 mill/uL (4.70-6.10); White Blood Cell (WBC) Count 13.4 thou/uL (4.8-10.8)
[2020-12-30 12:23] LABS: ALT (SGPT) 23 U/L (8-55); AST (SGOT) 19 U/L (5-34); Albumin 3.7 g/dL (3.4-4.8); Alkaline Phosphatase 108 U/L (40-110); Anion Gap 12 mmol/L (10-20); BUN (Urea Nitrogen) 13 mg/dL (8.4-25.7); Bilirubin, Total 0.3 mg/dL (0.2-1.2); Calc. Creatinine Clearance 0 mL/min (70-130); Calcium 9.9 mg/dL (7.8-10.44); Carbon Dioxide 24 mmol/L (23-31); Chloride 107 mmol/L (98-107); Globulin 3.7 g/dL (2.4-3.5); Glucose 130 mg/dL (80-115); Potassium 3.9 mmol/L (3.5-5.1); Protein, Total 7.4 g/dL (5.8-8.1); Sodium 139 mmol/L (136-145)
[2020-12-30 13:43] LABS: Bacteria/HPF 1+ HPF (None Seen); Bilirubin Negative (Negative); Blood, Urine Negative (Negative); Clarity Clear (Clear); Glucose, Urine (Dipstick) Normal (Negative); Ketone, Urine Negative (Negative); Leukocyte 250 Leu/uL (Negative); Nitrite Negative (Negative); Protein, Urine (Dipstick) Negative (Neg-Trace); RBC/HPF 0-3 HPF (0-3); Specific Gravity, Urine 1.006 (1.002-1.036); Squamous Epithelial 0-3 HPF (0-3); Urobilinogen Normal mg/dL (Less than 2); WBC/HPF Greater than 50 HPF (0-3); pH, Urine 7.5 (5.0-9.0)
[2020-12-30] MEDS ORDERED: cefTRIAXone\\ROCEPHIN 1 GM VIAL ONE (14:13)
[2020-12-30] MEDS ORDERED: Guaifenesin DM 100-10/5 ML UDCUP PO PRN (16:41)
[2020-12-30] MEDS ORDERED: Calcium Carbonate 500 MG ChewTAB PO PRN (16:41)
[2020-12-30] MEDS ORDERED: Ondansetron PF 4 MG/2 ML Vial IVP PRN (16:41)
[2020-12-30] MEDS ORDERED: Bisacodyl 10 MG SUPP PR PRN (16:41)
[2020-12-30] MEDS ORDERED: Acetaminophen 325 MG TAB PO PRN (16:41)
[2020-12-30] MEDS ORDERED: Senokot S 8.6-50 MG TAB PO PRN (16:41)
[2020-12-30 17:57] LABS: Troponin I Less than 0.010 ng/mL (< 0.028)
[2020-12-30] MEDS: Sodium Chloride 0.9% 1,000 ML IV SCH (18:29)
[2020-12-30 18:30] VITALS: BMI 20.5
[2020-12-30] MEDS: Lithium Carbonate 150 MG CAP PO SCH (20:34)
[2020-12-30] MEDS: carBAMazepine 200 MG TAB PO SCH (20:35)
[2020-12-30 21:00] LABS: Troponin I Less than 0.010 ng/mL (< 0.028)
[2020-12-31 05:05] LABS: #Basophils 0.1 thou/uL (0.0-0.2); #Eosinphils 0.5 thou/uL (0.0-0.7); #Lymphocytes 2.2 thou/uL (1.20-3.40); #Monocytes 0.7 thou/uL (0.11-0.59); %Basophils 0.5 % (0.0-1.0); %Monocytes 7.1 % (0.0-10.0); %Neutrophils 66.5 % (42.0-75.0); Hemoglobin 9.6 g/dL (14.0-18.0); Mean Corpuscular Hemoglobin 31.2 pg (27.0-31.0); Mean Corpuscular Volume 97.5 fL (78.0-98.0); Mean Platelet Volume 6.8 fL (7.4-10.4); Platelet Count 346 thou/uL (130-400); RBC Distribution Width 12.7 % (11.5-14.5); Red Blood Cell (RBC) Count 3.06 mill/uL (4.70-6.10); White Blood Cell (WBC) Count 10.5 thou/uL (4.8-10.8)
[2020-12-31 05:25] LABS: Anion Gap 9 mmol/L (10-20); BUN (Urea Nitrogen) 9 mg/dL (8.4-25.7); Calc. Creatinine Clearance 65 mL/min (70-130); Calcium 9.3 mg/dL (7.8-10.44); Carbon Dioxide 23 mmol/L (23-31); Chloride 114 mmol/L (98-107); Glucose 93 mg/dL (80-115); Sodium 142 mmol/L (136-145)
[2020-12-31] MEDS: Sodium Chloride 0.9% 1,000 ML IV SCH (06:14)
[2020-12-31] MEDS: Lithium Carbonate 150 MG CAP PO SCH (08:44)
[2020-12-31] MEDS: risperiDONE 1 MG TAB PO SCH (08:44)
[2020-12-31] MEDS: Enoxaparin Sodium 40 MG/0.4 ML SYRINGE SC SCH (08:44)
[2020-12-31] MEDS: carBAMazepine 200 MG TAB PO SCH ×2 (08:44→20:34)
[2020-12-31] MEDS ORDERED: FLU VACC QS2021-22(65YR UP)/PF 240 MCG/0.7 ML SYRINGE IM ONE (09:00)
[2020-12-31 11:14] LABS: SARS-CoV-2 PCR by NAA Not Detected (NotDetected)
[2021-01-01 05:09] LABS: #Basophils 0.1 thou/uL (0.0-0.2); #Eosinphils 0.5 thou/uL (0.0-0.7); #Lymphocytes 2.3 thou/uL (1.20-3.40); #Monocytes 0.7 thou/uL (0.11-0.59); #Neutrophils 8.9 thou/uL (1.40-6.50); %Basophils 0.5 % (0.0-1.0); %Eosinophils 4.2 % (0.0-10.0); %Lymphocytes 18.6 % (21.0-51.0); %Monocytes 5.9 % (0.0-10.0); %Neutrophils 70.9 % (42.0-75.0); Hemoglobin 11.1 g/dL (14.0-18.0); Mean Corpuscular HGB CONC 32.1 g/dL (32.0-36.0); Mean Corpuscular Hemoglobin 31.3 pg (27.0-31.0); Mean Corpuscular Volume 97.7 fL (78.0-98.0); Platelet Count 295 thou/uL (130-400); RBC Distribution Width 12.8 % (11.5-14.5); Red Blood Cell (RBC) Count 3.54 mill/uL (4.70-6.10); White Blood Cell (WBC) Count 12.5 thou/uL (4.8-10.8)
[2021-01-01 05:23] LABS: Anion Gap 12 mmol/L (10-20); BUN (Urea Nitrogen) 9 mg/dL (8.4-25.7); Calc. Creatinine Clearance 61 mL/min (70-130); Calcium 9.7 mg/dL (7.8-10.44); Carbon Dioxide 22 mmol/L (23-31); Chloride 113 mmol/L (98-107); Glucose 90 mg/dL (80-115); Potassium 3.7 mmol/L (3.5-5.1); Sodium 143 mmol/L (136-145)
[2021-01-01] MEDS ORDERED: Cefdinir 300 MG CAP PO SCH (09:00)
[2021-01-01] MEDS ORDERED: Multivit, Therapeutic 1 TAB PO SCH (09:00)
[2021-01-01] MEDS: Enoxaparin Sodium 40 MG/0.4 ML SYRINGE SC SCH (09:16)
[2021-01-01] MEDS: Lithium Carbonate 150 MG CAP PO SCH (09:17)
[2021-01-01] MEDS: risperiDONE 1 MG TAB PO SCH (09:17)
[2021-01-01] MEDS: carBAMazepine 200 MG TAB PO SCH (09:18)
[2021-01-01 10:44] LABS: Magnesium 2.1 mg/dL (1.6-2.6)
[2021-01-01 11:35] VITALS: BP 99/52; TEMP 97.9
== END 2021-01-01 15:25 | disposition home health service (06) | DRG 683 ==
LOC: ERS 11:12 → 2NO 16:28 → OBSVTOIN 12-31 16:31
PROVIDERS: ADMIT Internal Medicine; ATTEND Internal Medicine
DX: N17.9 Acute kidney failure, unspecified (principal); N39.0 Urinary tract infection, site not specified; F84.5 Asperger's syndrome; E86.0 Dehydration; G40.909 Epilepsy, unspecified, not intractable, without status epilepticus; N18.2 Chronic kidney disease, stage 2 (mild); D50.9 Iron deficiency anemia, unspecified; R13.10 Dysphagia, unspecified; Z79.899 Other long term (current) drug therapy
CPT/HCPCS: 36415; 70450; 72125; 80048; 80053; 80178; 81003; 81015; 83735; 84484; 85025; 93005; 96372; G0378; J0696; J1650; J7050; U0003; U0005

== ENCOUNTER 2021-01-26 15:20 | Inpatient (IN) | payer MEDICARE ==
[2021-01-26] MEDS ORDERED: Morphine 4 MG/ML VIAL ONE (15:35)
[2021-01-26 16:06] LABS: #Eosinphils 0.1 thou/uL (0.0-0.7); #Monocytes 0.6 thou/uL (0.11-0.59); #Neutrophils 9.7 thou/uL (1.40-6.50); %Basophils 0.1 % (0.0-1.0); %Eosinophils 0.6 % (0.0-10.0); %Lymphocytes 9.1 % (21.0-51.0); %Monocytes 5.2 % (0.0-10.0); %Neutrophils 85.1 % (42.0-75.0); Mean Corpuscular HGB CONC 33.1 g/dL (32.0-36.0); Mean Corpuscular Hemoglobin 32.5 pg (27.0-31.0); Mean Corpuscular Volume 98.3 fL (78.0-98.0); Platelet Count 289 thou/uL (130-400); RBC Distribution Width 12.5 % (11.5-14.5); Red Blood Cell (RBC) Count 3.37 mill/uL (4.70-6.10); White Blood Cell (WBC) Count 11.4 thou/uL (4.8-10.8)
[2021-01-26 16:27] LABS: ALT (SGPT) 15 U/L (8-55); AST (SGOT) 15 U/L (5-34); Albumin 3.8 g/dL (3.4-4.8); Alkaline Phosphatase 87 U/L (40-110); Anion Gap 14 mmol/L (10-20); BUN (Urea Nitrogen) 9 mg/dL (8.4-25.7); Bilirubin, Total 0.4 mg/dL (0.2-1.2); Calc. Creatinine Clearance 0 mL/min (70-130); Calcium 9.6 mg/dL (7.8-10.44); Carbon Dioxide 26 mmol/L (23-31); Chloride 104 mmol/L (98-107); Globulin 2.9 g/dL (2.4-3.5); Glucose 140 mg/dL (80-115); Lipase 27 U/L (8-78); Potassium 4.1 mmol/L (3.5-5.1); Protein, Total 6.7 g/dL (5.8-8.1); Sodium 140 mmol/L (136-145)
[2021-01-26 17:02] LABS: Bilirubin Negative (Negative); Blood, Urine Negative (Negative); Clarity Clear (Clear); Glucose, Urine (Dipstick) Normal (Negative); Ketone, Urine Negative (Negative); Leukocyte Negative Leu/uL (Negative); Nitrite Negative (Negative); Protein, Urine (Dipstick) Negative (Neg-Trace); Specific Gravity, Urine 1.006 (1.002-1.036); Urobilinogen Normal mg/dL (Less than 2)
[2021-01-26] MEDS ORDERED: Chloraseptic Spray 180 ml Bottle PO PRN (18:31)
[2021-01-26] MEDS ORDERED: Senokot S 8.6-50 MG TAB PO PRN (18:34)
[2021-01-26] MEDS ORDERED: Acetaminophen 650 MG Suppository PR PRN (18:34)
[2021-01-26] MEDS ORDERED: Ondansetron PF 4 MG/2 ML Vial IVP PRN (18:34)
[2021-01-26] MEDS ORDERED: Electrolyte Replacement Protocol 1 EACH FS SCH (18:45)
[2021-01-26] MEDS ORDERED: Morphine 4 MG/ML VIAL SLOW IVP PRN (18:50)
[2021-01-26] MEDS: Sodium Chloride 0.9% 1,000 ML IV SCH (21:07)
[2021-01-26] MEDS: Pantoprazole 40 MG VIAL IVP SCH (21:07)
[2021-01-26 21:44] VITALS: BMI 29.0
[2021-01-27 04:32] LABS: #Lymphocytes 0.7 thou/uL (1.20-3.40); #Monocytes 1.1 thou/uL (0.11-0.59); #Neutrophils 13.9 thou/uL (1.40-6.50); %Basophils 0.1 % (0.0-1.0); %Eosinophils 0.1 % (0.0-10.0); %Lymphocytes 4.4 % (21.0-51.0); %Monocytes 6.9 % (0.0-10.0); %Neutrophils 88.5 % (42.0-75.0); Hemoglobin 10.9 g/dL (14.0-18.0); Mean Corpuscular HGB CONC 33.2 g/dL (32.0-36.0); Mean Corpuscular Hemoglobin 32.5 pg (27.0-31.0); Mean Corpuscular Volume 97.9 fL (78.0-98.0); Mean Platelet Volume 7.2 fL (7.4-10.4); Platelet Count 312 thou/uL (130-400); RBC Distribution Width 12.4 % (11.5-14.5); Red Blood Cell (RBC) Count 3.34 mill/uL (4.70-6.10); White Blood Cell (WBC) Count 15.8 thou/uL (4.8-10.8)
[2021-01-27 04:47] LABS: Anion Gap 11 mmol/L (10-20); BUN (Urea Nitrogen) 11 mg/dL (8.4-25.7); Calc. Creatinine Clearance 93 mL/min (70-130); Calcium 9.6 mg/dL (7.8-10.44); Carbon Dioxide 27 mmol/L (23-31); Chloride 107 mmol/L (98-107); Glucose 133 mg/dL (80-115); Potassium 4.1 mmol/L (3.5-5.1); Sodium 141 mmol/L (136-145)
[2021-01-27] MEDS: Sodium Chloride 0.9% 1,000 ML IV SCH ×2 (07:44→16:23)
[2021-01-27] MEDS ORDERED: FLU VACC QS2021-22(65YR UP)/PF 240 MCG/0.7 ML SYRINGE IM ONE (09:00)
[2021-01-27] MEDS: Pantoprazole 40 MG VIAL IVP SCH ×2 (10:06→21:09)
[2021-01-27 12:28] LABS: SARS-CoV-2 PCR by NAA Not Detected (NotDetected)
[2021-01-28 05:23] LABS: Hemoglobin 11.1 g/dL (14.0-18.0); Mean Corpuscular Hemoglobin 32.7 pg (27.0-31.0); Mean Corpuscular Volume 99.3 fL (78.0-98.0); Mean Platelet Volume 7.2 fL (7.4-10.4); Platelet Count 293 thou/uL (130-400); RBC Distribution Width 12.6 % (11.5-14.5); Red Blood Cell (RBC) Count 3.39 mill/uL (4.70-6.10); White Blood Cell (WBC) Count 6.6 thou/uL (4.8-10.8)
[2021-01-28 05:39] LABS: Anion Gap 12 mmol/L (10-20); BUN (Urea Nitrogen) 20 mg/dL (8.4-25.7); Calc. Creatinine Clearance 78 mL/min (70-130); Calcium 9.5 mg/dL (7.8-10.44); Carbon Dioxide 23 mmol/L (23-31); Chloride 113 mmol/L (98-107); Glucose 110 mg/dL (80-115); Sodium 144 mmol/L (136-145)
[2021-01-28 05:57] LABS: Band 36 % (5-11); Eosinophils 4 % (0-10); Lymphocytes 14 % (21-51); MDiff Complete? YES; Monocytes 14 % (0-10); Neutrophil 32 % (42-75)
[2021-01-28] MEDS ORDERED: Bisacodyl 10 MG SUPP PR SCH (09:30)
[2021-01-28] MEDS: Pantoprazole 40 MG VIAL IVP SCH ×2 (09:34→21:42)
[2021-01-28] MEDS: Docusate 100 MG CAP PO SCH (21:42)
[2021-01-29] MEDS: Bisacodyl 10 MG SUPP PR SCH (10:42)
[2021-01-29] MEDS: Docusate 100 MG CAP PO SCH ×2 (10:42→21:29)
[2021-01-29] MEDS: Pantoprazole 40 MG VIAL IVP SCH ×2 (11:01→21:29)
[2021-01-30] MEDS: Docusate 100 MG CAP PO SCH (09:01)
[2021-01-30] MEDS: Bisacodyl 10 MG SUPP PR SCH (09:03)
[2021-01-30 12:10] VITALS: BP 118/79; TEMP 98.6
== END 2021-01-30 16:20 | disposition home or self-care (01) | DRG 389 ==
LOC: ERS 15:20 → SURG B 18:13
PROVIDERS: ADMIT Internal Medicine; ATTEND Family Medicine
PROC: 0D9670Z Drainage of Stomach with Drainage Device, Via Natural or Artificial Opening (ICD-10-PCS; principal; 2021-01-26)
DX: K56.609 Unspecified intestinal obstruction, unspecified as to partial versus complete obstruction (principal); N17.9 Acute kidney failure, unspecified; Z20.822 Contact with and (suspected) exposure to COVID-19; E87.0 Hyperosmolality and hypernatremia; F84.5 Asperger's syndrome; D72.829 Elevated white blood cell count, unspecified; R73.9 Hyperglycemia, unspecified; R60.0 Localized edema; E86.0 Dehydration; F95.2 Tourette's disorder; R29.6 Repeated falls; D53.9 Nutritional anemia, unspecified; Z86.73 Personal history of transient ischemic attack (TIA), and cerebral infarction without residual deficits; Z79.899 Other long term (current) drug therapy; Z82.49 Family history of ischemic heart disease and other diseases of the circulatory system
CPT/HCPCS: 36415; 36416; 74177; 80048; 80053; 81003; 83690; 83735; 85025; 96374; C9113; J2270; J2405; J7050; U0003; U0005

== ENCOUNTER 2021-11-20 01:31 | Observation (INO) | payer MEDICARE ==
[2021-11-20 02:14] LABS: #Lymphocytes 0.6 thou/uL (1.20-3.40); #Monocytes 0.3 thou/uL (0.11-0.59); #Neutrophils 6.6 thou/uL (1.40-6.50); %Basophils 0.1 % (0.0-1.0); %Eosinophils 0.1 % (0.0-10.0); %Lymphocytes 8.3 % (21.0-51.0); %Monocytes 3.6 % (0.0-10.0); %Neutrophils 87.9 % (42.0-75.0); Hemoglobin 13.4 g/dL (14.0-18.0); Mean Corpuscular HGB CONC 33.9 g/dL (32.0-36.0); Mean Corpuscular Hemoglobin 33.1 pg (27.0-31.0); Mean Corpuscular Volume 97.5 fL (78.0-98.0); Mean Platelet Volume 7.7 fL (7.4-10.4); Platelet Count 226 thou/uL (130-400); RBC Distribution Width 11.7 % (11.5-14.5); Red Blood Cell (RBC) Count 4.04 mill/uL (4.70-6.10); White Blood Cell (WBC) Count 7.5 thou/uL (4.8-10.8)
[2021-11-20 02:28] LABS: ALT (SGPT) 14 U/L (8-55); AST (SGOT) 14 U/L (5-34); Albumin 4.2 g/dL (3.4-4.8); Alkaline Phosphatase 88 U/L (40-110); Anion Gap 16 mmol/L (10-20); BUN (Urea Nitrogen) 15 mg/dL (8.4-25.7); Bilirubin, Total 0.5 mg/dL (0.2-1.2); Calc. Creatinine Clearance 0 mL/min (70-130); Calcium 9.6 mg/dL (7.8-10.44); Carbon Dioxide 23 mmol/L (23-31); Chloride 105 mmol/L (98-107); Estimated GFR 57; Globulin 2.8 g/dL (2.4-3.5); Glucose 183 mg/dL (80-115); Potassium 4.2 mmol/L (3.5-5.1); Sodium 140 mmol/L (136-145)
[2021-11-20] MEDS ORDERED: Piperacillin/Tazobactam 3.375 GM VIAL ONE (05:57)
[2021-11-20] MEDS ORDERED: HUM PROTHROMBIN CPLX(PCC)4FACT 2,000 UNIT in Admixture Fee 1 EACH IV SCH (07:15)
[2021-11-20 07:26] LABS: SARS-CoV-2 NAA Rapid Test Not Detected (NotDetected)
[2021-11-20] MEDS ORDERED: ADMIXTURE FEE IV SCH (07:30)
[2021-11-20] MEDS ORDERED: [UNRECOGNIZED DRUG - OTHER] IV SCH (07:30)
[2021-11-20] MEDS ORDERED: HUM PROTHROMBIN CPLX IV SCH (07:30)
[2021-11-20] MEDS ORDERED: Bupivacaine/Epinephrine 0.25% 30 ML VIAL ONE (08:41)
[2021-11-20] MEDS ORDERED: Ketorolac Tromethamine 30 MG/ML VIAL ONE (09:15)
[2021-11-20] MEDS ORDERED: fentaNYL Citrate/PF 100 MCG/2 ML SYRINGE ONE (09:17)
[2021-11-20] MEDS ORDERED: Rocuronium Bromide 10 MG/ML (10ML VIAL) ONE (09:41)
[2021-11-20] MEDS ORDERED: NEOSTIGMINE 3 MG/3 ML SYR 3 MG/3 ML SYRINGE ONE (09:41)
[2021-11-20] MEDS ORDERED: Dexamethasone 20 MG/5 ML VIAL ONE (09:41)
[2021-11-20] MEDS ORDERED: PROPOFOL 200 MG/20 ML VIAL ONE (09:41)
[2021-11-20] MEDS ORDERED: Glycopyrrolate 0.2 MG/ML 5 ML SYRINGE ONE (09:41)
[2021-11-20] MEDS ORDERED: Lidocaine 1% MPF 2 ML VIAL ONE (09:41)
[2021-11-20] MEDS ORDERED: Ondansetron PF 4 MG/2 ML Vial ONE (09:41)
[2021-11-20] MEDS ORDERED: hydrALAZINE 20 MG/ML VIAL SLOW IVP PRN (09:51)
[2021-11-20] MEDS ORDERED: Ondansetron PF 4 MG/2 ML Vial IVP PRN (09:51)
[2021-11-20] MEDS ORDERED: Acetaminophen 500 MG TAB PO PRN (09:55)
[2021-11-20] MEDS ORDERED: Ibuprofen 600 MG TAB PO PRN (09:55)
[2021-11-20] MEDS ORDERED: traMADol HCl 50 MG TAB PO PRN (09:55)
[2021-11-20] MEDS ORDERED: Acetaminophen 500 MG TAB PO SCH (10:00)
[2021-11-20] MEDS ORDERED: Piperacillin/Tazobactam 3.375 GM in Sodium Chloride 0.9% 100 ML IVPB SCH (11:00)
[2021-11-20] MEDS ORDERED: Iopamidol-370 76% 500 ML 1 ML ONE (14:28)
[2021-11-20 14:51] VITALS: BMI 24.1
[2021-11-20] MEDS: Ketorolac Tromethamine 30 MG/ML VIAL IVP SCH ×3 (15:15→23:59)
[2021-11-20] MEDS: Piperacillin/Tazobactam 3.375 GM in Sodium Chloride 0.9% 100 ML IVPB SCH (16:30)
[2021-11-20] MEDS: Sodium Chloride 0.45% 1,000 ML IV SCH (16:30)
[2021-11-20] MEDS ORDERED: Senokot S 8.6-50 MG TAB PO SCH (21:00)
[2021-11-20] MEDS ORDERED: risperiDONE 1 MG TAB PO SCH (21:00)
[2021-11-20] MEDS: carBAMazepine 200 MG TAB PO SCH (21:52)
[2021-11-20] MEDS: Lithium Carbonate 150 MG CAP PO SCH (21:53)
[2021-11-20] MEDS: Famotidine 20 MG TAB PO SCH (21:53)
[2021-11-21] MEDS: Sodium Chloride 0.45% 1,000 ML IV SCH ×2 (00:01→06:09)
[2021-11-21] MEDS: Piperacillin/Tazobactam 3.375 GM in Sodium Chloride 0.9% 100 ML IVPB SCH ×2 (00:30→08:21)
[2021-11-21 06:09] LABS: #Eosinphils 0.1 thou/uL (0.0-0.7); #Lymphocytes 0.9 thou/uL (1.20-3.40); #Monocytes 0.6 thou/uL (0.11-0.59); #Neutrophils 8.5 thou/uL (1.40-6.50); %Basophils 0.3 % (0.0-1.0); %Eosinophils 0.8 % (0.0-10.0); %Lymphocytes 8.7 % (21.0-51.0); %Monocytes 6.1 % (0.0-10.0); %Neutrophils 84.2 % (42.0-75.0); Hemoglobin 10.2 g/dL (14.0-18.0); Mean Corpuscular HGB CONC 32.5 g/dL (32.0-36.0); Mean Corpuscular Hemoglobin 32.2 pg (27.0-31.0); Mean Corpuscular Volume 99.1 fL (78.0-98.0); Mean Platelet Volume 7.8 fL (7.4-10.4); Platelet Count 160 thou/uL (130-400); RBC Distribution Width 12.1 % (11.5-14.5); Red Blood Cell (RBC) Count 3.17 mill/uL (4.70-6.10); White Blood Cell (WBC) Count 10.1 thou/uL (4.8-10.8)
[2021-11-21] MEDS: Ketorolac Tromethamine 30 MG/ML VIAL IVP SCH ×2 (06:09→13:10)
[2021-11-21 06:25] LABS: Anion Gap 11 mmol/L (10-20); BUN (Urea Nitrogen) 19 mg/dL (8.4-25.7); Calc. Creatinine Clearance 67 mL/min (70-130); Calcium 8.2 mg/dL (7.8-10.44); Carbon Dioxide 21 mmol/L (23-31); Chloride 110 mmol/L (98-107); Estimated GFR 66; Glucose 116 mg/dL (80-115); Sodium 138 mmol/L (136-145)
[2021-11-21] MEDS: Lithium Carbonate 150 MG CAP PO SCH (08:22)
[2021-11-21] MEDS: Famotidine 20 MG TAB PO SCH (08:22)
[2021-11-21] MEDS: carBAMazepine 200 MG TAB PO SCH (08:22)
[2021-11-21] MEDS ORDERED: Non-Formulary Item 1 EACH (Rivaroxaban [Xarelto] 20 MG Tablet) PO SCH (09:00)
[2021-11-21] MEDS ORDERED: Multivit, Therapeutic 1 TAB PO SCH (09:00)
[2021-11-21 16:09] VITALS: BP 106/71; TEMP 98.9
[2021-11-21] MEDS ORDERED: Amoxicillin/Potassium Clav 875 MG TAB PO SCH (21:00)
[2021-11-22] MEDS ORDERED: Rivaroxaban 10 MG TAB PO SCH (09:00)
== END 2021-11-21 17:47 ==
LOC: ERS 01:31 → SDC 08:00 → SURG A 09:51
PROVIDERS: ADMIT Specialist; ATTEND Specialist
PROC: 0DTJ4ZZ Resection of Appendix, Percutaneous Endoscopic Approach (ICD-10-PCS; principal; 2021-11-20)
DX: K35.32 Acute appendicitis with perforation, localized peritonitis, and gangrene, without abscess (principal); I48.91 Unspecified atrial fibrillation; F84.5 Asperger's syndrome; F31.9 Bipolar disorder, unspecified; F95.2 Tourette's disorder; G40.802 Other epilepsy, not intractable, without status epilepticus; Z86.73 Personal history of transient ischemic attack (TIA), and cerebral infarction without residual deficits; Z79.01 Long term (current) use of anticoagulants; Z79.899 Other long term (current) drug therapy; Z20.822 Contact with and (suspected) exposure to COVID-19
CPT/HCPCS: 44970; 74177; 80048; 80053; 85025 ×2; 93005; 96361; 96374; 96375; 97116; 97535; 99285; J7168; U0002; 36415; 88304; A4649; J1100; J1885; J2405; J2543; J2704; J3490; Q9967

== ENCOUNTER 2022-04-12 14:57 | Inpatient (IN) | payer MEDICARE ==
[2022-04-12 16:39] LABS: SARS-CoV-2 NAA Rapid Test Not Detected (NotDetected)
[2022-04-12 16:53] LABS: #Eosinphils 0.1 thou/uL (0.0-0.7); #Lymphocytes 1.5 thou/uL (1.20-3.40); #Monocytes 1.5 thou/uL (0.11-0.59); #Neutrophils 16.1 thou/uL (1.40-6.50); %Basophils 0.1 % (0.0-1.0); %Eosinophils 0.5 % (0.0-10.0); %Lymphocytes 7.8 % (21.0-51.0); %Monocytes 7.6 % (0.0-10.0); %Neutrophils 84.1 % (42.0-75.0); Hemoglobin 11.5 g/dL (14.0-18.0); Mean Corpuscular HGB CONC 33.8 g/dL (32.0-36.0); Mean Corpuscular Hemoglobin 33.1 pg (27.0-31.0); Mean Corpuscular Volume 97.8 fl (78.0-98.0); Mean Platelet Volume 7.8 fL (7.4-10.4); Platelet Count 186 10x3/uL (130-400); RBC Distribution Width 11.8 % (11.5-14.5); Red Blood Cell (RBC) Count 3.49 mill/uL (4.70-6.10); White Blood Cell (WBC) Count 19.2 10x3/uL (4.8-10.8)
[2022-04-12 17:00] LABS: Bilirubin Negative (Negative); Blood, Urine Negative (Negative); Clarity Clear (Clear); Glucose, Urine (Dipstick) Normal (Negative); Ketone, Urine Negative (Negative); Leukocyte 500 Leu/uL (Negative); Nitrite 2+ (Negative); Protein, Urine (Dipstick) 30 mg/dL (Neg-Trace); RBC/HPF 0-3 HPF (0-3); Specific Gravity, Urine 1.015 (1.002-1.036); Squamous Epithelial None Seen HPF (0-3); Urobilinogen Normal mg/dL (Less than 2); WBC/HPF 21-50 HPF (0-3)
[2022-04-12 17:01] LABS: Bacteria/HPF 1+ HPF (None Seen)
[2022-04-12] MEDS ORDERED: Aspirin Chewable 81 MG TAB ONE (17:06)
[2022-04-12] MEDS ORDERED: Cefepime 2 GM VIAL ONE (17:06)
[2022-04-12 17:15] LABS: ALT (SGPT) 15 U/L (8-55); AST (SGOT) 14 U/L (5-34); Albumin 3.9 g/dL (3.4-4.8); Alkaline Phosphatase 85 U/L (40-110); Anion Gap 13 mmol/L (10-20); BUN (Urea Nitrogen) 17 mg/dL (8.4-25.7); Bilirubin, Total 0.7 mg/dL (0.2-1.2); CK (CPK) 140 U/L (30-200); Calc. Creatinine Clearance 0 mL/min (70-130); Calcium 9.6 mg/dL (7.8-10.44); Carbon Dioxide 24 mmol/L (23-31); Chloride 105 mmol/L (98-107); Estimated GFR 62; Globulin 3.4 g/dL (2.4-3.5); Glucose 102 mg/dL (80-115); Potassium 4.2 mmol/L (3.5-5.1); Protein, Total 7.3 g/dL (5.8-8.1); Sodium 138 mmol/L (136-145)
[2022-04-12] MEDS ORDERED: VANCOMYCIN 1.75 GM/500 ML BAG 1.75 GM in Premix Bag 1 BAG IVPB SCH (18:00)
[2022-04-12] MEDS: Lactated Ringer's 1,000 ML IV SCH (22:36)
[2022-04-12] MEDS: carBAMazepine 200 MG TAB PO SCH (22:37)
[2022-04-12] MEDS: risperiDONE 1 MG TAB PO SCH (22:37)
[2022-04-12] MEDS: Lithium Carbonate 150 MG CAP PO SCH (22:45)
[2022-04-13 01:03] VITALS: BMI 22.5
[2022-04-13] MEDS: Lactated Ringer's 1,000 ML IV SCH ×2 (04:12→17:20)
[2022-04-13] MEDS ORDERED: cefTRIAXone\\ROCEPHIN 1 GM in Sodium Chloride 0.9% 100 ML IVPB SCH ×2 (05:00→18:00)
[2022-04-13 05:14] LABS: #Eosinphils 0.3 thou/uL (0.0-0.7); #Lymphocytes 1.1 thou/uL (1.20-3.40); #Monocytes 0.8 thou/uL (0.11-0.59); #Neutrophils 9.1 thou/uL (1.40-6.50); %Basophils 0.2 % (0.0-1.0); %Eosinophils 2.9 % (0.0-10.0); %Lymphocytes 9.3 % (21.0-51.0); %Monocytes 7.1 % (0.0-10.0); %Neutrophils 80.4 % (42.0-75.0); Hemoglobin 10.8 g/dL (14.0-18.0); Mean Corpuscular Hemoglobin 32.4 pg (27.0-31.0); Mean Corpuscular Volume 98.1 fl (78.0-98.0); Mean Platelet Volume 7.8 fL (7.4-10.4); Platelet Count 160 10x3/uL (130-400); RBC Distribution Width 11.7 % (11.5-14.5); Red Blood Cell (RBC) Count 3.32 mill/uL (4.70-6.10); White Blood Cell (WBC) Count 11.3 10x3/uL (4.8-10.8)
[2022-04-13 05:42] LABS: Anion Gap 8 mmol/L (10-20); BUN (Urea Nitrogen) 13 mg/dL (8.4-25.7); Calc. Creatinine Clearance 65 mL/min (70-130); Calcium 9.2 mg/dL (7.8-10.44); Carbon Dioxide 25 mmol/L (23-31); Chloride 112 mmol/L (98-107); Estimated GFR 70; Glucose 96 mg/dL (80-115); Potassium 4.1 mmol/L (3.5-5.1); Sodium 141 mmol/L (136-145)
[2022-04-13] MEDS: Ferrous Sulfate 325 MG TAB PO SCH (07:48)
[2022-04-13] MEDS: Lithium Carbonate 150 MG CAP PO SCH ×2 (08:56→20:12)
[2022-04-13] MEDS: carBAMazepine 200 MG TAB PO SCH ×2 (08:56→20:11)
[2022-04-13] MEDS: Metamucil PACK PO SCH (08:57)
[2022-04-13] MEDS: Multivit, Therapeutic 1 TAB PO SCH (08:57)
[2022-04-13] MEDS: Rivaroxaban 10 MG TAB PO SCH (08:57)
[2022-04-13] MEDS: Loratadine 10 MG TAB PO SCH (08:57)
[2022-04-13] MEDS: Polyethylene Glycol 3350 17 GM Packet PO SCH (08:57)
[2022-04-13] MEDS: Tamsulosin HCl 0.4 MG CAP PO SCH (08:58)
[2022-04-13] MEDS: Acetaminophen 325 MG TAB PO PRN ×2 (08:58→17:20)
[2022-04-13] MEDS ORDERED: cefTRIAXone\\ROCEPHIN 2 GM in Sodium Chloride 0.9% 100 ML IVPB SCH (19:43)
[2022-04-13] MEDS: risperiDONE 1 MG TAB PO SCH (20:11)
[2022-04-13] MEDS: Melatonin 3 MG TAB PO SCH (20:12)
[2022-04-14] MEDS: cefTRIAXone\\ROCEPHIN 2 GM in Sodium Chloride 0.9% 100 ML IVPB SCH (05:18)
[2022-04-14 05:42] LABS: #Eosinphils 0.4 thou/uL (0.0-0.7); #Lymphocytes 0.9 thou/uL (1.20-3.40); #Monocytes 0.5 thou/uL (0.11-0.59); #Neutrophils 4.3 thou/uL (1.40-6.50); %Basophils 0.3 % (0.0-1.0); %Eosinophils 5.9 % (0.0-10.0); %Lymphocytes 14.9 % (21.0-51.0); %Monocytes 8.1 % (0.0-10.0); %Neutrophils 70.8 % (42.0-75.0); Hemoglobin 11.3 g/dL (14.0-18.0); Mean Corpuscular Hemoglobin 32.5 pg (27.0-31.0); Mean Corpuscular Volume 98.4 fl (78.0-98.0); Mean Platelet Volume 7.7 fL (7.4-10.4); Platelet Count 192 10x3/uL (130-400); RBC Distribution Width 11.8 % (11.5-14.5); Red Blood Cell (RBC) Count 3.48 mill/uL (4.70-6.10); White Blood Cell (WBC) Count 6.1 10x3/uL (4.8-10.8)
[2022-04-14 05:58] LABS: Anion Gap 10 mmol/L (10-20); BUN (Urea Nitrogen) 11 mg/dL (8.4-25.7); Calc. Creatinine Clearance 70 mL/min (70-130); Calcium 9.5 mg/dL (7.8-10.44); Carbon Dioxide 24 mmol/L (23-31); Chloride 114 mmol/L (98-107); Estimated GFR 76; Glucose 98 mg/dL (80-115); Potassium 4.1 mmol/L (3.5-5.1); Sodium 144 mmol/L (136-145)
[2022-04-14] MEDS: Lithium Carbonate 150 MG CAP PO SCH ×2 (09:23→20:32)
[2022-04-14] MEDS: Polyethylene Glycol 3350 17 GM Packet PO SCH (09:24)
[2022-04-14] MEDS: Metamucil PACK PO SCH (09:25)
[2022-04-14] MEDS: Loratadine 10 MG TAB PO SCH (09:26)
[2022-04-14] MEDS: Multivit, Therapeutic 1 TAB PO SCH (09:26)
[2022-04-14] MEDS: Tamsulosin HCl 0.4 MG CAP PO SCH (09:26)
[2022-04-14] MEDS: carBAMazepine 200 MG TAB PO SCH ×2 (09:26→20:31)
[2022-04-14] MEDS: Rivaroxaban 10 MG TAB PO SCH (09:26)
[2022-04-14] MEDS: Melatonin 3 MG TAB PO SCH (20:30)
[2022-04-14] MEDS: risperiDONE 1 MG TAB PO SCH (20:31)
[2022-04-15] MEDS: cefTRIAXone\\ROCEPHIN 2 GM in Sodium Chloride 0.9% 100 ML IVPB SCH (05:32)
[2022-04-15 05:51] LABS: #Basophils 0.1 thou/uL (0.0-0.2); #Eosinphils 0.6 thou/uL (0.0-0.7); #Lymphocytes 1.6 thou/uL (1.20-3.40); #Monocytes 0.8 thou/uL (0.11-0.59); #Neutrophils 3.4 thou/uL (1.40-6.50); %Basophils 0.8 % (0.0-1.0); %Eosinophils 9.4 % (0.0-10.0); %Lymphocytes 24.7 % (21.0-51.0); %Neutrophils 53.1 % (42.0-75.0); Hemoglobin 11.9 g/dL (14.0-18.0); Mean Corpuscular HGB CONC 33.9 g/dL (32.0-36.0); Mean Corpuscular Hemoglobin 33.1 pg (27.0-31.0); Mean Corpuscular Volume 97.5 fl (78.0-98.0); Mean Platelet Volume 7.3 fL (7.4-10.4); Platelet Count 235 10x3/uL (130-400); RBC Distribution Width 11.8 % (11.5-14.5); White Blood Cell (WBC) Count 6.4 10x3/uL (4.8-10.8)
[2022-04-15 06:11] LABS: Anion Gap 11 mmol/L (10-20); BUN (Urea Nitrogen) 15 mg/dL (8.4-25.7); Calc. Creatinine Clearance 69 mL/min (70-130); Calcium 9.3 mg/dL (7.8-10.44); Carbon Dioxide 23 mmol/L (23-31); Chloride 112 mmol/L (98-107); Estimated GFR 74; Glucose 101 mg/dL (80-115); Potassium 4.1 mmol/L (3.5-5.1); Sodium 142 mmol/L (136-145)
[2022-04-15] MEDS: Lithium Carbonate 150 MG CAP PO SCH (08:56)
[2022-04-15] MEDS: Rivaroxaban 10 MG TAB PO SCH (08:57)
[2022-04-15] MEDS: Multivit, Therapeutic 1 TAB PO SCH (08:57)
[2022-04-15] MEDS: Ferrous Sulfate 325 MG TAB PO SCH (08:57)
[2022-04-15] MEDS: carBAMazepine 200 MG TAB PO SCH (08:57)
[2022-04-15] MEDS: Polyethylene Glycol 3350 17 GM Packet PO SCH (08:58)
[2022-04-15] MEDS: Loratadine 10 MG TAB PO SCH (08:58)
[2022-04-15] MEDS: Tamsulosin HCl 0.4 MG CAP PO SCH (08:58)
[2022-04-15] MEDS: Metamucil PACK PO SCH (08:58)
[2022-04-15 11:35] VITALS: BP 102/65; TEMP 98.4
== END 2022-04-15 12:45 | disposition home health service (06) | DRG 871 ==
LOC: ERS 14:57 → OBSVTOIN 17:35 → ERHOLD 17:35 → NEURO 21:14
PROVIDERS: ADMIT Student in an Organized Health Care Education/Training Program; ATTEND Student in an Organized Health Care Education/Training Program
DX: A41.9 Sepsis, unspecified organism (principal); G93.41 Metabolic encephalopathy; F84.0 Autistic disorder; N39.0 Urinary tract infection, site not specified; I48.19 Other persistent atrial fibrillation; Z68.22 Body mass index [BMI] 22.0-22.9, adult; N40.0 Benign prostatic hyperplasia without lower urinary tract symptoms; Z20.822 Contact with and (suspected) exposure to COVID-19; D63.8 Anemia in other chronic diseases classified elsewhere; R63.0 Anorexia; C61 Malignant neoplasm of prostate; E86.0 Dehydration; Z79.899 Other long term (current) drug therapy; Z90.49 Acquired absence of other specified parts of digestive tract
CPT/HCPCS: 36415; 71045; 80048; 80053; 80178; 81003; 81015; 82550; 83605; 84145; 84443; 84484; 85025; 86140; 87040; 87077; 87086; 87149; 87186; 93005; J0692; J0696; J3370; J3490; J7120

== ENCOUNTER 2022-09-25 11:14 | Inpatient (IN) | payer MEDICARE ==
[2022-09-25 12:35] LABS: #Eosinphils 0.1 thou/uL (0.0-0.7); #Monocytes 0.8 thou/uL (0.11-0.59); #Neutrophils 7.2 thou/uL (1.40-6.50); %Basophils 0.5 % (0.0-1.0); %Eosinophils 0.6 % (0.0-10.0); %Monocytes 9.5 % (0.0-10.0); %Neutrophils 81.1 % (42.0-75.0); Hemoglobin 12.1 g/dL (14.0-18.0); Mean Corpuscular HGB CONC 31.8 g/dL (32.0-36.0); Mean Corpuscular Hemoglobin 32.1 pg (27.0-31.0); Mean Corpuscular Volume 101.1 fl (78.0-98.0); Mean Platelet Volume 10.4 fL (7.4-10.4); Platelet Count 222 10x3/uL (130-400); Red Blood Cell (RBC) Count 3.77 mill/uL (4.70-6.10); White Blood Cell (WBC) Count 8.9 10x3/uL (4.8-10.8)
[2022-09-25 12:48] LABS: INR-International Normal Ratio 1.2; PTT 25.9 sec (22.9-36.1); Prothrombin Time 15.7 sec (12.0-14.7)
[2022-09-25 12:54] LABS: Acetaminophen Less than 10 mcg/mL (10.0-30.0); Alcohol Less than 10.0 mg/dL (Less than 10); Lipase 68 U/L (8-78); Salicylate Less than 8.0 mg/dL (15.0-30.0)
[2022-09-25 13:05] LABS: ALT (SGPT) 59 U/L (8-55); AST (SGOT) 130 U/L (5-34); Alkaline Phosphatase 59 U/L (40-110); Anion Gap 17 mmol/L (10-20); BUN (Urea Nitrogen) 52 mg/dL (8.4-25.7); Bilirubin, Total 0.5 mg/dL (0.2-1.2); Calc. Creatinine Clearance 0 mL/min (70-130); Carbon Dioxide 18 mmol/L (23-31); Chloride 122 mmol/L (98-107); Estimated GFR 39; Globulin 3.1 g/dL (2.4-3.5); Glucose 117 mg/dL (80-115); Potassium 3.9 mmol/L (3.5-5.1); Protein, Total 7.1 g/dL (5.8-8.1)
[2022-09-25 13:20] LABS: Sodium 153 mmol/L (136-145)
[2022-09-25 13:29] LABS: CK (CPK) 4743 U/L (30-200)
[2022-09-25 16:01] VITALS: BMI 20.5
[2022-09-25] MEDS ORDERED: Dextrose 5% in Water 1,000 ML IV SCH (16:30)
[2022-09-25] MEDS ORDERED: Lactated Ringer's 1,000 ML IV SCH (16:45)
[2022-09-25 17:12] LABS: Phosphorus 4.8 mg/dL (2.3-4.7)
[2022-09-25 17:15] LABS: ALT (SGPT) 57 U/L (8-55); AST (SGOT) 118 U/L (5-34); Alkaline Phosphatase 57 U/L (40-110); Anion Gap 16 mmol/L (10-20); BUN (Urea Nitrogen) 46 mg/dL (8.4-25.7); Bilirubin, Total 0.4 mg/dL (0.2-1.2); Calc. Creatinine Clearance 42 mL/min (70-130); Calcium 8.8 mg/dL (7.8-10.44); Carbon Dioxide 17 mmol/L (23-31); Chloride 124 mmol/L (98-107); Estimated GFR 46; Globulin 3.2 g/dL (2.4-3.5); Glucose 118 mg/dL (80-115); Potassium 4.6 mmol/L (3.5-5.1); Protein, Total 7.2 g/dL (5.8-8.1)
[2022-09-25 17:17] LABS: Troponin I 0.022 ng/mL (< 0.028)
[2022-09-25 17:31] LABS: Sodium 152 mmol/L (136-145)
[2022-09-25 18:44] LABS: Bacteria/HPF None Seen HPF (None Seen); Bilirubin Negative (Negative); Blood, Urine Trace (Negative); CAUTI Indications for Culture Alt mental st,lethar; Clarity Clear (Clear); Glucose, Urine (Dipstick) Normal (Negative); Ketone, Urine 10 mg/dL (Negative); Leukocyte Negative Leu/uL (Negative); Nitrite Negative (Negative); Protein, Urine (Dipstick) 20 mg/dL (Neg-Trace); RBC/HPF 0-3 HPF (0-3); Specific Gravity, Urine 1.018 (1.002-1.036); Squamous Epithelial None Seen HPF (0-3); Urobilinogen Normal mg/dL (Less than 2); WBC/HPF 0-3 HPF (0-3); pH, Urine 5.5 (5.0-9.0)
[2022-09-25 18:50] LABS: Urine Culture Reflex No No
[2022-09-25] MEDS: Metoprolol Tartrate 25 MG TAB PO SCH (20:30)
[2022-09-25] MEDS: Lithium Carbonate 150 MG CAP PO SCH (20:30)
[2022-09-25] MEDS: carBAMazepine 200 MG TAB PO SCH (20:30)
[2022-09-25] MEDS: risperiDONE 1 MG TAB PO SCH (20:30)
[2022-09-25 20:31] LABS: ALT (SGPT) 50 U/L (8-55); AST (SGOT) 103 U/L (5-34); Albumin 3.6 g/dL (3.4-4.8); Alkaline Phosphatase 53 U/L (40-110); Anion Gap 14 mmol/L (10-20); BUN (Urea Nitrogen) 43 mg/dL (8.4-25.7); Bilirubin, Total 0.4 mg/dL (0.2-1.2); Calc. Creatinine Clearance 49 mL/min (70-130); Calcium 8.7 mg/dL (7.8-10.44); Carbon Dioxide 19 mmol/L (23-31); Chloride 125 mmol/L (98-107); Estimated GFR 56; Globulin 2.7 g/dL (2.4-3.5); Glucose 116 mg/dL (80-115); Potassium 4.6 mmol/L (3.5-5.1); Protein, Total 6.3 g/dL (5.8-8.1)
[2022-09-25 20:34] LABS: Sodium 153 mmol/L (136-145)
[2022-09-25 20:35] LABS: Troponin I 0.025 ng/mL (< 0.028)
[2022-09-25] MEDS: Dextrose 5% in Water 1,000 ML IV SCH (22:30)
[2022-09-26 01:21] LABS: Anion Gap 9 mmol/L (10-20); BUN (Urea Nitrogen) 39 mg/dL (8.4-25.7); Calc. Creatinine Clearance 50 mL/min (70-130); Calcium 8.5 mg/dL (7.8-10.44); Carbon Dioxide 22 mmol/L (23-31); Chloride 126 mmol/L (98-107); Estimated GFR 58; Glucose 139 mg/dL (80-115); Potassium 4.4 mmol/L (3.5-5.1)
[2022-09-26 01:24] LABS: Sodium 153 mmol/L (136-145)
[2022-09-26] MEDS: Dextrose 5% in Water 1,000 ML IV SCH ×2 (05:06→11:43)
[2022-09-26 06:49] LABS: #Eosinphils 0.5 thou/uL (0.0-0.7); #Monocytes 0.5 thou/uL (0.11-0.59); #Neutrophils 6.3 thou/uL (1.40-6.50); %Basophils 0.4 % (0.0-1.0); %Lymphocytes 8.3 % (21.0-51.0); %Neutrophils 78.9 % (42.0-75.0); Hemoglobin 11.4 g/dL (14.0-18.0); Mean Corpuscular HGB CONC 31.8 g/dL (32.0-36.0); Mean Corpuscular Hemoglobin 32.8 pg (27.0-31.0); Mean Corpuscular Volume 102.9 fl (78.0-98.0); Mean Platelet Volume 10.4 fL (7.4-10.4); Platelet Count 157 10x3/uL (130-400); RBC Distribution Width 13.2 % (11.5-14.5); Red Blood Cell (RBC) Count 3.48 mill/uL (4.70-6.10)
[2022-09-26 07:17] LABS: ALT (SGPT) 47 U/L (8-55); AST (SGOT) 88 U/L (5-34); Albumin 3.4 g/dL (3.4-4.8); Alkaline Phosphatase 50 U/L (40-110); Anion Gap 10 mmol/L (10-20); BUN (Urea Nitrogen) 32 mg/dL (8.4-25.7); Bilirubin, Total 0.4 mg/dL (0.2-1.2); CK (CPK) 2708 U/L (30-200); Calc. Creatinine Clearance 54 mL/min (70-130); Calcium 8.3 mg/dL (7.8-10.44); Carbon Dioxide 20 mmol/L (23-31); Chloride 123 mmol/L (98-107); Estimated GFR 63; Globulin 2.6 g/dL (2.4-3.5); Glucose 124 mg/dL (80-115); Potassium 3.8 mmol/L (3.5-5.1); Sodium 149 mmol/L (136-145)
[2022-09-26] MEDS: Lithium Carbonate 150 MG CAP PO SCH ×2 (08:18→20:04)
[2022-09-26] MEDS: Rivaroxaban 10 MG TAB PO SCH (08:18)
[2022-09-26] MEDS: Metoprolol Tartrate 25 MG TAB PO SCH ×2 (08:19→20:05)
[2022-09-26] MEDS: Multivit, Therapeutic 1 TAB PO SCH (08:19)
[2022-09-26] MEDS: carBAMazepine 200 MG TAB PO SCH ×2 (08:19→20:04)
[2022-09-26] MEDS: Loratadine 10 MG TAB PO SCH (08:19)
[2022-09-26] MEDS: Tamsulosin HCl 0.4 MG CAP PO SCH (08:19)
[2022-09-26 12:45] LABS: Anion Gap 12 mmol/L (10-20); BUN (Urea Nitrogen) 27 mg/dL (8.4-25.7); Calc. Creatinine Clearance 65 mL/min (70-130); Calcium 8.2 mg/dL (7.8-10.44); Carbon Dioxide 18 mmol/L (23-31); Chloride 116 mmol/L (98-107); Estimated GFR 79; Glucose 101 mg/dL (80-115); Glucose POC Confirmation 101 mg/dL (83-110); Potassium 3.6 mmol/L (3.5-5.1); Sodium 142 mmol/L (136-145)
[2022-09-26] MEDS ORDERED: Dextrose 5% in Water 1,000 ML IV SCH (13:00)
[2022-09-26 17:02] LABS: Anion Gap 20 mmol/L (10-20); BUN (Urea Nitrogen) 29 mg/dL (8.4-25.7); Calc. Creatinine Clearance 64 mL/min (70-130); Calcium 8.3 mg/dL (7.8-10.44); Carbon Dioxide 10 mmol/L (23-31); Chloride 120 mmol/L (98-107); Estimated GFR 77; Glucose 104 mg/dL (80-115); Potassium 5.1 mmol/L (3.5-5.1); Sodium 145 mmol/L (136-145)
[2022-09-26] MEDS: risperiDONE 1 MG TAB PO SCH (20:04)
[2022-09-26] MEDS: Melatonin 3 MG TAB PO SCH (20:05)
[2022-09-27 07:20] LABS: #Eosinphils 0.3 thou/uL (0.0-0.7); #Monocytes 0.4 thou/uL (0.11-0.59); #Neutrophils 4.8 thou/uL (1.40-6.50); %Basophils 0.2 % (0.0-1.0); %Eosinophils 5.3 % (0.0-10.0); %Lymphocytes 8.6 % (21.0-51.0); %Monocytes 6.1 % (0.0-10.0); %Neutrophils 79.5 % (42.0-75.0); Hemoglobin 11.4 g/dL (14.0-18.0); Mean Corpuscular HGB CONC 32.1 g/dL (32.0-36.0); Mean Corpuscular Hemoglobin 32.8 pg (27.0-31.0); Mean Platelet Volume 10.6 fL (7.4-10.4); Platelet Count 143 10x3/uL (130-400); RBC Distribution Width 13.1 % (11.5-14.5); Red Blood Cell (RBC) Count 3.48 mill/uL (4.70-6.10); White Blood Cell (WBC) Count 6.1 10x3/uL (4.8-10.8)
[2022-09-27 07:51] LABS: ALT (SGPT) 43 U/L (8-55); AST (SGOT) 66 U/L (5-34); Albumin 3.4 g/dL (3.4-4.8); Alkaline Phosphatase 59 U/L (40-110); Anion Gap 12 mmol/L (10-20); BUN (Urea Nitrogen) 19 mg/dL (8.4-25.7); Bilirubin, Total 0.3 mg/dL (0.2-1.2); Calc. Creatinine Clearance 63 mL/min (70-130); Calcium 8.7 mg/dL (7.8-10.44); Carbon Dioxide 19 mmol/L (23-31); Chloride 119 mmol/L (98-107); Estimated GFR 76; Globulin 2.8 g/dL (2.4-3.5); Glucose 99 mg/dL (80-115); Potassium 4.1 mmol/L (3.5-5.1); Protein, Total 6.2 g/dL (5.8-8.1); Sodium 146 mmol/L (136-145)
[2022-09-27] MEDS: Multivit, Therapeutic 1 TAB PO SCH (09:09)
[2022-09-27] MEDS: Loratadine 10 MG TAB PO SCH (09:09)
[2022-09-27] MEDS: Metoprolol Tartrate 25 MG TAB PO SCH ×2 (09:09→20:04)
[2022-09-27] MEDS: Lithium Carbonate 150 MG CAP PO SCH ×2 (09:09→20:04)
[2022-09-27] MEDS: Tamsulosin HCl 0.4 MG CAP PO SCH (09:10)
[2022-09-27] MEDS: carBAMazepine 200 MG TAB PO SCH ×2 (09:10→20:03)
[2022-09-27] MEDS: Rivaroxaban 10 MG TAB PO SCH (09:10)
[2022-09-27 16:34] LABS: Chloride 119 mmol/L (98-107); Potassium 3.8 mmol/L (3.5-5.1); Sodium 143 mmol/L (136-145)
[2022-09-27 16:52] LABS: BUN (Urea Nitrogen) 21 mg/dL (8.4-25.7); Calc. Creatinine Clearance 62 mL/min (70-130); Calcium 8.8 mg/dL (7.8-10.44); Carbon Dioxide 14 mmol/L (23-31); Estimated GFR 74; Glucose 96 mg/dL (80-115)
[2022-09-27 17:38] LABS: Anion Gap 14 mmol/L (10-20)
[2022-09-27] MEDS: Melatonin 3 MG TAB PO SCH (20:03)
[2022-09-27] MEDS: risperiDONE 1 MG TAB PO SCH (20:03)
[2022-09-28 06:41] LABS: #Eosinphils 0.4 thou/uL (0.0-0.7); #Monocytes 0.4 thou/uL (0.11-0.59); %Basophils 0.5 % (0.0-1.0); %Eosinophils 5.3 % (0.0-10.0); %Lymphocytes 12.2 % (21.0-51.0); %Monocytes 6.5 % (0.0-10.0); Mean Corpuscular HGB CONC 31.3 g/dL (32.0-36.0); Mean Corpuscular Hemoglobin 33.1 pg (27.0-31.0); Mean Platelet Volume 10.7 fL (7.4-10.4); Platelet Count 149 10x3/uL (130-400); RBC Distribution Width 13.2 % (11.5-14.5); Red Blood Cell (RBC) Count 3.63 mill/uL (4.70-6.10); White Blood Cell (WBC) Count 6.6 10x3/uL (4.8-10.8)
[2022-09-28 07:01] LABS: Mean Corpuscular Volume 105.5 fl (78.0-98.0)
[2022-09-28 08:05] LABS: ALT (SGPT) 43 U/L (8-55); AST (SGOT) 49 U/L (5-34); Albumin 3.4 g/dL (3.4-4.8); Alkaline Phosphatase 65 U/L (40-110); Anion Gap 14 mmol/L (10-20); BUN (Urea Nitrogen) 18 mg/dL (8.4-25.7); Bilirubin, Total 0.3 mg/dL (0.2-1.2); Calc. Creatinine Clearance 59 mL/min (70-130); Calcium 9.2 mg/dL (7.8-10.44); Carbon Dioxide 17 mmol/L (23-31); Chloride 122 mmol/L (98-107); Estimated GFR 71; Glucose 96 mg/dL (80-115); Potassium 4.6 mmol/L (3.5-5.1); Protein, Total 6.4 g/dL (5.8-8.1); Sodium 148 mmol/L (136-145)
[2022-09-28] MEDS: Lithium Carbonate 150 MG CAP PO SCH ×2 (09:29→20:24)
[2022-09-28] MEDS: carBAMazepine 200 MG TAB PO SCH ×2 (09:29→20:21)
[2022-09-28] MEDS: Multivit, Therapeutic 1 TAB PO SCH (09:30)
[2022-09-28] MEDS: Metoprolol Tartrate 25 MG TAB PO SCH ×2 (09:30→20:22)
[2022-09-28] MEDS: Tamsulosin HCl 0.4 MG CAP PO SCH (09:30)
[2022-09-28] MEDS: Rivaroxaban 10 MG TAB PO SCH (09:30)
[2022-09-28] MEDS: Loratadine 10 MG TAB PO SCH (09:30)
[2022-09-28 16:34] LABS: Anion Gap 14 mmol/L (10-20); BUN (Urea Nitrogen) 19 mg/dL (8.4-25.7); Calc. Creatinine Clearance 59 mL/min (70-130); Carbon Dioxide 18 mmol/L (23-31); Chloride 119 mmol/L (98-107); Estimated GFR 71; Glucose 98 mg/dL (80-115); Potassium 4.4 mmol/L (3.5-5.1); Sodium 147 mmol/L (136-145)
[2022-09-28] MEDS: risperiDONE 1 MG TAB PO SCH (20:21)
[2022-09-28] MEDS: Melatonin 3 MG TAB PO SCH (20:22)
[2022-09-29 06:46] LABS: #Eosinphils 0.3 thou/uL (0.0-0.7); #Monocytes 0.4 thou/uL (0.11-0.59); #Neutrophils 4.7 thou/uL (1.40-6.50); %Basophils 0.7 % (0.0-1.0); %Eosinophils 4.3 % (0.0-10.0); %Lymphocytes 12.2 % (21.0-51.0); %Monocytes 6.1 % (0.0-10.0); %Neutrophils 76.4 % (42.0-75.0); Hemoglobin 11.3 g/dL (14.0-18.0); Mean Corpuscular Hemoglobin 31.7 pg (27.0-31.0); Mean Platelet Volume 10.7 fL (7.4-10.4); Platelet Count 167 10x3/uL (130-400); RBC Distribution Width 13.2 % (11.5-14.5); Red Blood Cell (RBC) Count 3.57 mill/uL (4.70-6.10); White Blood Cell (WBC) Count 6.1 10x3/uL (4.8-10.8)
[2022-09-29 07:12] LABS: ALT (SGPT) 36 U/L (8-55); AST (SGOT) 33 U/L (5-34); Albumin 3.5 g/dL (3.4-4.8); Alkaline Phosphatase 61 U/L (40-110); Anion Gap 13 mmol/L (10-20); BUN (Urea Nitrogen) 20 mg/dL (8.4-25.7); Bilirubin, Total 0.2 mg/dL (0.2-1.2); Calc. Creatinine Clearance 53 mL/min (70-130); Calcium 9.1 mg/dL (7.8-10.44); Carbon Dioxide 23 mmol/L (23-31); Chloride 119 mmol/L (98-107); Estimated GFR 62; Globulin 2.7 g/dL (2.4-3.5); Glucose 96 mg/dL (80-115); Protein, Total 6.2 g/dL (5.8-8.1)
[2022-09-29 07:18] LABS: Sodium 151 mmol/L (136-145)
[2022-09-29] MEDS: carBAMazepine 200 MG TAB PO SCH (09:38)
[2022-09-29] MEDS: Lithium Carbonate 150 MG CAP PO SCH (09:38)
[2022-09-29] MEDS: Loratadine 10 MG TAB PO SCH (09:38)
[2022-09-29] MEDS: Metoprolol Tartrate 25 MG TAB PO SCH (09:38)
[2022-09-29] MEDS: Tamsulosin HCl 0.4 MG CAP PO SCH (09:39)
[2022-09-29] MEDS: Rivaroxaban 10 MG TAB PO SCH (09:39)
[2022-09-29] MEDS: Multivit, Therapeutic 1 TAB PO SCH (09:39)
[2022-09-29] MEDS ORDERED: Lactated Ringer's 1,000 ML IV SCH (11:45)
[2022-09-29 16:08] VITALS: TEMP 98
[2022-09-29 16:14] LABS: Anion Gap 12 mmol/L (10-20); BUN (Urea Nitrogen) 20 mg/dL (8.4-25.7); Calc. Creatinine Clearance 62 mL/min (70-130); Calcium 9.1 mg/dL (7.8-10.44); Carbon Dioxide 22 mmol/L (23-31); Chloride 114 mmol/L (98-107); Estimated GFR 74; Glucose 98 mg/dL (80-115); Potassium 4.1 mmol/L (3.5-5.1); Sodium 144 mmol/L (136-145)
[2022-09-29 20:06] VITALS: BP 118/70
== END 2022-09-29 20:38 | DRG 557 ==
LOC: ERS 11:14 → T4-A 14:38
PROVIDERS: ADMIT Student in an Organized Health Care Education/Training Program; ATTEND Student in an Organized Health Care Education/Training Program
DX: M62.82 Rhabdomyolysis (principal); G93.41 Metabolic encephalopathy; E87.0 Hyperosmolality and hypernatremia; N17.9 Acute kidney failure, unspecified; I48.92 Unspecified atrial flutter; E87.20 Acidosis, unspecified; E86.0 Dehydration; R74.01 Elevation of levels of liver transaminase levels; R53.81 Other malaise; E87.8 Other disorders of electrolyte and fluid balance, not elsewhere classified; D64.9 Anemia, unspecified; Z86.73 Personal history of transient ischemic attack (TIA), and cerebral infarction without residual deficits; F31.9 Bipolar disorder, unspecified; Z85.46 Personal history of malignant neoplasm of prostate; Z79.899 Other long term (current) drug therapy; Z90.49 Acquired absence of other specified parts of digestive tract; Z80.9 Family history of malignant neoplasm, unspecified
CPT/HCPCS: 36415; 36416; 70450; 70551; 71045; 72125; 72170; 80053; 80178; 80307; 81001; 82140; 82550; 82607; 83690; 83735; 84100; 84443; 84484; 85025; 85610; 85730; 87040; 87086; 93005; 96360; 96361; J7070; J7120

== ENCOUNTER 2022-10-25 20:50 | Inpatient (IN) | payer MEDICARE ==
[2022-10-25] MEDS ORDERED: Cefepime 2 GM VIAL ONE (21:19)
[2022-10-25 21:23] LABS: #Monocytes 0.7 thou/uL (0.11-0.59); #Neutrophils 7.8 thou/uL (1.40-6.50); %Basophils 0.3 % (0.0-1.0); %Eosinophils 0.2 % (0.0-10.0); %Lymphocytes 5.3 % (21.0-51.0); %Monocytes 7.9 % (0.0-10.0); %Neutrophils 85.6 % (42.0-75.0); Mean Corpuscular HGB CONC 33.3 g/dL (32.0-36.0); Mean Corpuscular Hemoglobin 32.8 pg (27.0-31.0); Mean Corpuscular Volume 98.4 fl (78.0-98.0); Mean Platelet Volume 9.4 fL (7.4-10.4); Platelet Count 231 10x3/uL (130-400); RBC Distribution Width 12.5 % (11.5-14.5); Red Blood Cell (RBC) Count 3.05 mill/uL (4.70-6.10); White Blood Cell (WBC) Count 9.1 10x3/uL (4.8-10.8)
[2022-10-25] MEDS ORDERED: Acetaminophen 500 MG TAB ONE (21:29)
[2022-10-25 21:48] LABS: ALT (SGPT) 18 U/L (8-55); AST (SGOT) 23 U/L (5-34); Albumin 3.8 g/dL (3.4-4.8); Alkaline Phosphatase 105 U/L (40-110); Anion Gap 13 mmol/L (10-20); BUN (Urea Nitrogen) 13 mg/dL (8.4-25.7); Bilirubin, Total 0.2 mg/dL (0.2-1.2); CK (CPK) 896 U/L (30-200); Calc. Creatinine Clearance 0 mL/min (70-130); Calcium 8.9 mg/dL (7.8-10.44); Carbon Dioxide 21 mmol/L (23-31); Chloride 109 mmol/L (98-107); Estimated GFR 46; Globulin 2.7 g/dL (2.4-3.5); Glucose 134 mg/dL (80-115); Protein, Total 6.5 g/dL (5.8-8.1); Sodium 139 mmol/L (136-145)
[2022-10-25] MEDS ORDERED: Vancomycin 1.5 GRAM/300 ML BAG 1.5 GM in Premix Bag 1 BAG IVPB SCH (22:00)
[2022-10-25 22:14] LABS: Bacteria/HPF None Seen HPF (None Seen); Bilirubin Negative (Negative); Blood, Urine 2+ (Negative); CAUTI Indications for Culture Alt mental st,lethar; Clarity Clear (Clear); Glucose, Urine (Dipstick) Normal (Negative); Ketone, Urine Negative (Negative); Leukocyte Negative Leu/uL (Negative); Nitrite Negative (Negative); Protein, Urine (Dipstick) Negative (Neg-Trace); RBC/HPF 0-3 HPF (0-3); Specific Gravity, Urine 1.004 (1.002-1.036); Squamous Epithelial None Seen HPF (0-3); Urobilinogen Normal mg/dL (Less than 2); WBC/HPF None Seen HPF (0-3)
[2022-10-25 22:17] LABS: Urine Culture Reflex No No
[2022-10-25] MEDS ORDERED: Lactated Ringer's 500 ML IV SCH (23:45)
[2022-10-25] MEDS ORDERED: Ondansetron ODT 4 MG TAB PO PRN (23:53)
[2022-10-26 01:42] VITALS: BMI 22.1
[2022-10-26 02:10] LABS: Troponin I 0.016 ng/mL (< 0.028)
[2022-10-26] MEDS: Lactated Ringer's 1,000 ML IV SCH ×3 (02:19→16:54)
[2022-10-26 04:56] LABS: #Monocytes 1.3 thou/uL (0.11-0.59); #Neutrophils 6.8 thou/uL (1.40-6.50); %Basophils 0.4 % (0.0-1.0); %Eosinophils 0.2 % (0.0-10.0); %Lymphocytes 11.6 % (21.0-51.0); %Monocytes 14.1 % (0.0-10.0); %Neutrophils 73.1 % (42.0-75.0); Hematocrit 31.7 % (42.0-52.0); Hemoglobin 10.3 g/dL (14.0-18.0); Mean Corpuscular HGB CONC 32.5 g/dL (32.0-36.0); Mean Corpuscular Hemoglobin 32.8 pg (27.0-31.0); Mean Platelet Volume 9.6 fL (7.4-10.4); Platelet Count 233 10x3/uL (130-400); RBC Distribution Width 12.8 % (11.5-14.5); Red Blood Cell (RBC) Count 3.14 mill/uL (4.70-6.10); White Blood Cell (WBC) Count 9.4 10x3/uL (4.8-10.8)
[2022-10-26 05:29] LABS: Troponin I 0.016 ng/mL (< 0.028)
[2022-10-26 05:47] LABS: ALT (SGPT) 26 U/L (8-55); AST (SGOT) 52 U/L (5-34); Albumin 3.6 g/dL (3.4-4.8); Alkaline Phosphatase 101 U/L (40-110); Anion Gap 12 mmol/L (10-20); BUN (Urea Nitrogen) 13 mg/dL (8.4-25.7); Bilirubin, Total 0.4 mg/dL (0.2-1.2); Calc. Creatinine Clearance 54 mL/min (70-130); Calcium 8.7 mg/dL (7.8-10.44); Carbon Dioxide 20 mmol/L (23-31); Chloride 117 mmol/L (98-107); Estimated GFR 57; Globulin 2.7 g/dL (2.4-3.5); Glucose 108 mg/dL (80-115); Potassium 4.3 mmol/L (3.5-5.1); Protein, Total 6.3 g/dL (5.8-8.1); Sodium 145 mmol/L (136-145)
[2022-10-26 08:04] LABS: Acetaminophen Less than 10 mcg/mL (10.0-30.0); Alcohol Less than 10.0 mg/dL (Less than 10); Salicylate Less than 8.0 mg/dL (15.0-30.0)
[2022-10-26] MEDS: cefTRIAXone\\ROCEPHIN 1 GM in Sodium Chloride 0.9% 100 ML IVPB SCH (08:25)
[2022-10-26] MEDS ORDERED: Non-Formulary Item 1 EACH (Lithium Carbonate [Lithium Carbonate] 300 MG Tablet) PO SCH (09:00)
[2022-10-26] MEDS ORDERED: Melatonin 3 MG TAB PO PRN (09:12)
[2022-10-26 09:19] LABS: Amphetamine Not Detected (NotDetected); Barbiturates Screen Not Detected (NotDetected); Benzodiazepine Screen Not Detected (NotDetected); Cocaine Metabolite Screen Not Detected (NotDetected); Methadone Not Detected (NotDetected); Methamphetamine Not Detected (NotDetected); Opiate Screen Not Detected (NotDetected); Oxycodone Screen Not Detected (NotDetected); Phencyclidine (PCP) Not Detected (NotDetected); THC/Cannabinoid Screen Not Detected (NotDetected); Tricyclic Screen Not Detected (NotDetected)
[2022-10-26] MEDS: Azithromycin 500 MG in Sodium Chloride 0.9% 250 ML 250 ML IVPB SCH (09:40)
[2022-10-26] MEDS: carBAMazepine 200 MG TAB PO SCH ×2 (09:40→20:04)
[2022-10-26] MEDS: risperiDONE 1 MG TAB PO SCH (20:04)
[2022-10-26] MEDS ORDERED: MELATONIN 5 MG PO SCH (21:00)
[2022-10-27 05:04] LABS: #Basophils 0.1 thou/uL (0.0-0.2); #Eosinphils 0.2 thou/uL (0.0-0.7); #Monocytes 0.9 thou/uL (0.11-0.59); #Neutrophils 7.3 thou/uL (1.40-6.50); %Basophils 0.5 % (0.0-1.0); %Eosinophils 1.7 % (0.0-10.0); %Lymphocytes 8.7 % (21.0-51.0); %Monocytes 9.9 % (0.0-10.0); %Neutrophils 78.8 % (42.0-75.0); Hematocrit 31.2 % (42.0-52.0); Hemoglobin 9.8 g/dL (14.0-18.0); Mean Corpuscular HGB CONC 31.4 g/dL (32.0-36.0); Mean Platelet Volume 9.4 fL (7.4-10.4); Platelet Count 214 10x3/uL (130-400); RBC Distribution Width 13.3 % (11.5-14.5); Red Blood Cell (RBC) Count 3.06 mill/uL (4.70-6.10); White Blood Cell (WBC) Count 9.3 10x3/uL (4.8-10.8)
[2022-10-27 05:32] LABS: ALT (SGPT) 24 U/L (8-55); AST (SGOT) 40 U/L (5-34); Albumin 3.2 g/dL (3.4-4.8); Alkaline Phosphatase 89 U/L (40-110); Anion Gap 10 mmol/L (10-20); BUN (Urea Nitrogen) 11 mg/dL (8.4-25.7); Bilirubin, Total 0.2 mg/dL (0.2-1.2); Calc. Creatinine Clearance 59 mL/min (70-130); Calcium 8.9 mg/dL (7.8-10.44); Carbon Dioxide 21 mmol/L (23-31); Chloride 120 mmol/L (98-107); Estimated GFR 64; Glucose 105 mg/dL (80-115); Potassium 3.8 mmol/L (3.5-5.1); Protein, Total 6.2 g/dL (5.8-8.1); Sodium 147 mmol/L (136-145)
[2022-10-27] MEDS: carBAMazepine 200 MG TAB PO SCH ×2 (08:27→20:20)
[2022-10-27] MEDS: cefTRIAXone\\ROCEPHIN 1 GM in Sodium Chloride 0.9% 100 ML IVPB SCH (08:27)
[2022-10-27] MEDS: Ferrous Sulfate 325 MG TAB PO SCH (08:28)
[2022-10-27] MEDS: Tamsulosin HCl 0.4 MG CAP PO SCH (08:28)
[2022-10-27] MEDS: Azithromycin 500 MG in Sodium Chloride 0.9% 250 ML 250 ML IVPB SCH (09:32)
[2022-10-27] MEDS ORDERED: Polyethylene Glycol 3350 17 GM Packet PO PRN (13:59)
[2022-10-27] MEDS ORDERED: Rivaroxaban 10 MG TAB PO SCH (17:00)
[2022-10-27] MEDS: risperiDONE 1 MG TAB PO SCH (20:20)
[2022-10-27] MEDS: Amoxicillin/Potassium Clav 875 MG TAB PO SCH (20:21)
[2022-10-28 04:35] LABS: ALT (SGPT) 23 U/L (8-55); AST (SGOT) 33 U/L (5-34); Albumin 3.2 g/dL (3.4-4.8); Alkaline Phosphatase 83 U/L (40-110); Anion Gap 10 mmol/L (10-20); BUN (Urea Nitrogen) 14 mg/dL (8.4-25.7); Bilirubin, Total 0.3 mg/dL (0.2-1.2); Calc. Creatinine Clearance 64 mL/min (70-130); Calcium 8.9 mg/dL (7.8-10.44); Carbon Dioxide 22 mmol/L (23-31); Chloride 117 mmol/L (98-107); Estimated GFR 70; Globulin 3.2 g/dL (2.4-3.5); Glucose 96 mg/dL (80-115); Potassium 3.7 mmol/L (3.5-5.1); Protein, Total 6.4 g/dL (5.8-8.1); Sodium 145 mmol/L (136-145)
[2022-10-28] MEDS ORDERED: Azithromycin 250 MG TAB PO SCH (09:00)
[2022-10-28] MEDS: carBAMazepine 200 MG TAB PO SCH (09:46)
[2022-10-28] MEDS: Ferrous Sulfate 325 MG TAB PO SCH (09:46)
[2022-10-28] MEDS: Amoxicillin/Potassium Clav 875 MG TAB PO SCH (09:46)
[2022-10-28] MEDS: Tamsulosin HCl 0.4 MG CAP PO SCH (09:47)
[2022-10-28 11:35] VITALS: BP 101/62; TEMP 97
== END 2022-10-28 16:20 | DRG 871 ==
LOC: ERS 20:50 → 2NO 10-26 00:08
PROVIDERS: ADMIT Family Medicine; ATTEND Family Medicine
PROC: 0T9B70Z Drainage of Bladder with Drainage Device, Via Natural or Artificial Opening (ICD-10-PCS; principal; 2022-10-25)
PROC: 3E03329 Introduction of Other Anti-infective into Peripheral Vein, Percutaneous Approach (ICD-10-PCS; 2022-10-25)
DX: A41.9 Sepsis, unspecified organism (principal); J18.9 Pneumonia, unspecified organism; N17.9 Acute kidney failure, unspecified; I48.92 Unspecified atrial flutter; I50.30 Unspecified diastolic (congestive) heart failure; N40.0 Benign prostatic hyperplasia without lower urinary tract symptoms; Z85.46 Personal history of malignant neoplasm of prostate; Z86.73 Personal history of transient ischemic attack (TIA), and cerebral infarction without residual deficits; Z90.89 Acquired absence of other organs; R53.81 Other malaise; I48.91 Unspecified atrial fibrillation; R29.6 Repeated falls; Z79.01 Long term (current) use of anticoagulants; R63.0 Anorexia; D63.8 Anemia in other chronic diseases classified elsewhere; E86.0 Dehydration; F31.9 Bipolar disorder, unspecified; Z68.22 Body mass index [BMI] 22.0-22.9, adult
CPT/HCPCS: 36415; 51702; 70450; 71045; 80053; 80178; 80306; 80307; 81001; 82140; 82550; 83605; 83735; 83880; 84145; 84443; 84484; 85025; 87040; 87086; 93005; 93306; 96365; 96366; 96367; J0456; J0692; J0696; J3370; J3490; J7050; J7120

== ENCOUNTER 2023-04-02 16:39 | Emergency (ER) | payer MEDICARE ==
[~2023-04-02 16:39] MED LIST: Iopamidol-370 76% 500 ML MDV (1 ML CHARGE) ONE
[2023-04-02 17:28] LABS: #Eosinphils 0.2 thou/uL (0.0-0.7); #Monocytes 0.7 thou/uL (0.11-0.59); #Neutrophils 4.4 thou/uL (1.40-6.50); %Basophils 0.6 % (0.0-1.0); %Eosinophils 3.4 % (0.0-10.0); %Lymphocytes 14.5 % (21.0-51.0); %Monocytes 11.3 % (0.0-10.0); Hematocrit 34.1 % (42.0-52.0); Hemoglobin 11.5 g/dL (14.0-18.0); Mean Corpuscular HGB CONC 33.7 g/dL (32.0-36.0); Mean Corpuscular Hemoglobin 32.7 pg (27.0-31.0); Mean Corpuscular Volume 96.9 fl (78.0-98.0); Mean Platelet Volume 9.7 fL (7.4-10.4); Platelet Count 215 10x3/uL (130-400); RBC Distribution Width 13.2 % (11.5-14.5); Red Blood Cell (RBC) Count 3.52 mill/uL (4.70-6.10); White Blood Cell (WBC) Count 6.2 10x3/uL (4.8-10.8)
[2023-04-02 17:34] LABS: Bacteria/HPF None Seen HPF (None Seen); Bilirubin Negative (Negative); Blood, Urine Negative (Negative); CAUTI Indications for Culture Pelvic or flank pain; Clarity Clear (Clear); Glucose, Urine (Dipstick) Normal (Negative); Ketone, Urine Negative (Negative); Leukocyte Negative Leu/uL (Negative); Nitrite Negative (Negative); Protein, Urine (Dipstick) Negative (Neg-Trace); RBC/HPF None Seen HPF (0-3); Specific Gravity, Urine 1.012 (1.002-1.036); Squamous Epithelial None Seen HPF (0-3); Urobilinogen Normal mg/dL (Less than 2); WBC/HPF None Seen HPF (0-3); pH, Urine 6.5 (5.0-9.0)
[2023-04-02 17:39] LABS: Urine Culture Reflex No No
[2023-04-02 17:54] LABS: ALT (SGPT) 16 U/L (8-55); AST (SGOT) 21 U/L (5-34); Albumin 4.1 g/dL (3.4-4.8); Alkaline Phosphatase 85 U/L (40-110); Anion Gap 13 mmol/L (10-20); BUN (Urea Nitrogen) 16 mg/dL (8.4-25.7); Bilirubin, Total 0.3 mg/dL (0.2-1.2); Calc. Creatinine Clearance 0 mL/min (70-130); Calcium 8.7 mg/dL (7.8-10.44); Carbon Dioxide 23 mmol/L (23-31); Chloride 106 mmol/L (98-107); Estimated GFR 71; Globulin 2.9 g/dL (2.4-3.5); Glucose 101 mg/dL (80-115); Lipase 38 U/L (8-78); Potassium 4.2 mmol/L (3.5-5.1); Sodium 138 mmol/L (136-145)
[2023-04-02 17:56] LABS: Troponin I Less than 0.010 ng/mL (< 0.028)
== END 2023-04-02 19:40 | disposition home or self-care (01) ==
LOC: ERS 16:39
DX: K40.90 Unilateral inguinal hernia, without obstruction or gangrene, not specified as recurrent (principal); G40.909 Epilepsy, unspecified, not intractable, without status epilepticus; I48.91 Unspecified atrial fibrillation; Z79.01 Long term (current) use of anticoagulants; Z86.718 Personal history of other venous thrombosis and embolism; Z79.899 Other long term (current) drug therapy
CPT/HCPCS: 36415; 74177; 80053; 81001; 83605; 83690; 84484; 85025; Q9967

== ENCOUNTER 2023-04-22 09:17 | Day surgery (SDC) | payer MEDICARE ==
[2023-04-20 11:10] VITALS: BMI 25.0
[2023-04-22] MEDS ORDERED: EPINEPHrine 1 MG/ML VIAL ONE (10:06)
[2023-04-22] MEDS ORDERED: Bupivacaine 0.25% HCL 30 ML VIAL ONE (10:07)
[2023-04-22] MEDS ORDERED: Ketorolac Tromethamine 30 MG (1 mL) VIAL ONE (10:10)
[2023-04-22] MEDS ORDERED: Acetaminophen 500 MG TAB ONE (10:11)
[2023-04-22] MEDS ORDERED: PROPOFOL 20 ML ONE (10:13)
[2023-04-22] MEDS ORDERED: Rocuronium Bromide 10 MG/ML (10ML VIAL) ONE (10:13)
[2023-04-22] MEDS ORDERED: fentaNYL PF 100 MCG/2 ML SYRINGE ONE (10:13)
[2023-04-22] MEDS ORDERED: Lidocaine 1% PF 5 ML VIAL ONE (10:13)
[2023-04-22] MEDS ORDERED: Tamsulosin HCl 0.4 MG CAP ONE (12:42)
[2023-04-22] MEDS ORDERED: Sodium Chloride 0.9% 100 ML ONE (12:53)
[2023-04-22] MEDS ORDERED: CEFAZOLIN 2 GM VIAL ONE (12:53)
[2023-04-22] MEDS ORDERED: PHENYLEPHRINE-NS 100 MCG/ML 10 ML SYRINGE ONE (13:22)
[2023-04-22] MEDS ORDERED: ePHEDrine Sulfate 50 MG/10 ML VIAL ONE (13:24)
[2023-04-22] MEDS ORDERED: Ondansetron PF 4 MG/2 ML Vial ONE (14:28)
[2023-04-22] MEDS ORDERED: SUGAMMADEX SODIUM 200 MG/2 ML VIAL ONE (14:29)
[2023-04-22] MEDS ORDERED: fentaNYL 50 mcg/mL 1 mL Vial ONE ×2 (14:59→15:33)
== END 2023-04-22 17:22 | disposition home or self-care (01) ==
LOC: SDC 09:17
PROVIDERS: ATTEND Specialist
PROC: 0YQ54ZZ Repair Right Inguinal Region, Percutaneous Endoscopic Approach (ICD-10-PCS; principal; 2023-04-22)
DX: K40.90 Unilateral inguinal hernia, without obstruction or gangrene, not specified as recurrent (principal); I48.91 Unspecified atrial fibrillation; F31.9 Bipolar disorder, unspecified; N40.0 Benign prostatic hyperplasia without lower urinary tract symptoms; Z79.01 Long term (current) use of anticoagulants; Z79.899 Other long term (current) drug therapy; Z86.73 Personal history of transient ischemic attack (TIA), and cerebral infarction without residual deficits; Z86.010 Personal history of colon polyps; Z90.89 Acquired absence of other organs; Z98.890 Other specified postprocedural states
CPT/HCPCS: 49650; 71045; A4314; C1781; J0171; J3010; J0665; J1885; J2405; J2704; J3490